=== PATIENT | female | born 1955 | race Caucasian/White ===

== ENCOUNTER → 2016-06-26 | Outpatient (CLI) | payer BC ==
[~2016-06-26] MED LIST: ACETAMINOPHEN-O1 TAB PO; ASPIRIN ADULT L81 M3 PO; BUDESONIDE0.5 MG/2 M IH; CALCIUM 600 PLU1 TAB PO; CELLCEPT 5500 MG/TAB PO; FEXOFENADINE H180 M1 PO; FLAXSEED OIL1 CAP PO; FOSAMAX 70MG TA70 MG PO; GREEN TEA1 EACH PO; HYDROCODON-ACET15 ML PO; MASON NATURAL1000 IU PO; NATURAL E400 IU PO; NATURAL IRON65 MG PO; NATURAL VITAM1000 MG PO; OMEPRAZOLE40 MG PO; PLAQUENIL 200M200 MG PO; PREDNISONE10 MG; PREDNISONE20 M1 PO; PROAIR HFA0.09 MG/AC; SPIRONOLACTONE/1 TAB PO; SYNTHROID0.2 MG/TAB PO; ZOFRAN4 M2 PO
[2016-06-26 10:36] VITALS: BP 133/74
== END ==
LOC: AMSURD 10:04
DX: R06.00 Dyspnea, unspecified (principal)

== ENCOUNTER → 2016-07-06 | Outpatient (CLI) | payer BC | LOC: RAD 14:41 | DX: K11.23 Chronic sialoadenitis (principal) | CPT/HCPCS: Q9967 ==

== ENCOUNTER 2016-08-21 09:30 | Emergency (ER) | payer BC ==
[~2016-08-21 09:30] MED LIST changes: -ACETAMINOPHEN-O1 TAB PO; -HYDROCODON-ACET15 ML PO; -PREDNISONE20 M1 PO; -ZOFRAN4 M2 PO
[2016-08-21] MEDS ORDERED: HYDROCODON-ACET15 ML PO (11:42)
[2016-08-21] MEDS ORDERED: PREDNISONE20 M1 PO (11:43)
[2016-08-22] MEDS ORDERED: ZOFRAN4 M2 PO (21:27)
== END 2016-08-21 12:39 | disposition home or self-care (01) ==
LOC: ED 09:30
DX: K11.8 Other diseases of salivary glands (principal)
CPT/HCPCS: J2270; J2930

== ENCOUNTER 2016-08-22 20:07 | Inpatient (IN) | payer BC ==
[~2016-08-22 20:07] MED LIST changes: +HYDROCODON-ACET15 ML PO; +PREDNISONE20 M1 PO
[2016-08-22] MEDS ORDERED: ZOFRAN4 M2 PO (21:27)
[2016-08-23] VITALS (8 sets, daily range): BP systolic 135–163; BP diastolic 43–85
[2016-08-23] MEDS ORDERED: ACETAMINOPHEN-O1 TAB PO (17:24)
[2016-08-23] MEDS ORDERED: PREDNISONE20 M1 PO (17:26)
[2016-08-24 02:28] VITALS: BP 140/68
[2016-08-24 06:21] VITALS: BP 151/77
== END 2016-08-24 09:01 | disposition home or self-care (01) | DRG 547 ==
LOC: ED 20:07 → MED/SURG 23:20
PROVIDERS: ADMIT Nurse Practitioner Family
DX: M32.19 Other organ or system involvement in systemic lupus erythematosus (principal); K11.20 Sialoadenitis, unspecified; K13.79 Other lesions of oral mucosa; K21.9 Gastro-esophageal reflux disease without esophagitis; E03.9 Hypothyroidism, unspecified; I10 Essential (primary) hypertension; Z79.52 Long term (current) use of systemic steroids; Z79.82 Long term (current) use of aspirin
CPT/HCPCS: J2270; J2405; J2930

== ENCOUNTER 2016-08-27 10:19 | Emergency (ER) | payer BC ==
[~2016-08-27 10:19] MED LIST changes: +ACETAMINOPHEN-O1 TAB PO; +ZOFRAN4 M2 PO
== END 2016-08-27 12:00 | disposition home or self-care (01) ==
LOC: ED 10:19
DX: K11.23 Chronic sialoadenitis (principal); R68.84 Jaw pain

== ENCOUNTER → 2016-09-05 | Outpatient (CLI) | payer BC ==
[2016-08-27 12:00] VITALS: BP 168/87
== END ==
LOC: LAB 13:39
DX: L02.11 Cutaneous abscess of neck (principal); M27.2 Inflammatory conditions of jaws

== ENCOUNTER → 2016-09-06 | Outpatient (CLI) | payer BC ==
[2016-08-27 12:00] VITALS: BP 168/87
== END ==
LOC: MAMMO 09:59
DX: L02.11 Cutaneous abscess of neck (principal); M27.2 Inflammatory conditions of jaws
CPT/HCPCS: G0202; Q9967

== ENCOUNTER → 2017-09-11 | Outpatient (CLI) | payer BC ==
[2016-08-27 12:00] VITALS: BP 168/87
== END ==
LOC: MAMMO 09:54 → RAD 10:00
DX: Z12.31 Encounter for screening mammogram for malignant neoplasm of breast (principal)

== ENCOUNTER → 2017-11-02 | Outpatient (CLI) | payer BC ==
[2016-08-27 12:00] VITALS: BP 168/87
[2017-11-02 16:02] LABS: HEMATOCRIT 39.6 % (37.0-47.0); HEMOGLOBIN 12.4 g/dL (12.5-16.0); MEAN CELL VOLUME 87 fl (78-100); MEAN CORPUSCULAR HEMOGLOBIN 27 pg (27-31); MEAN CORPUSCULAR HGB CONC 31 g/dL (33-37); MEAN PLATELET VOLUME 9.3 fl (7.4-10.4); PLATELET COUNT 255 K/mm3 (130-400); RED BLOOD COUNT 4.58 M/mm3 (4.10-5.30); RED CELL DISTRIBUTION WIDTH 13.9 % (11.5-14.5); WHITE BLOOD COUNT 7.4 K/mm3 (4.8-10.8)
[2017-11-02 16:36] LABS: LYMPHOCYTE 9 % (20-51); MONOCYTE 3 % (3-10); NEUTROPHILS 87 % (42-75)
[2017-11-02 17:02] LABS: ALBUMIN 4.1 g/dL (3.5-5.0); BUN/CREATININE RATIO 23.2 (6.0-26.0); CALCIUM 8.8 mg/dL (8.4-10.2); POTASSIUM 4.8 mmol/L (3.6-5.0); TOTAL BILIRUBIN 0.3 mg/dL (0.2-1.3); TOTAL PROTEIN 7.6 g/dL (6.3-8.2)
== END ==
LOC: LAB 15:43
PROVIDERS: Internal Medicine
DX: L03.818 Cellulitis of other sites (principal); L02.11 Cutaneous abscess of neck; M27.2 Inflammatory conditions of jaws

== ENCOUNTER 2017-11-14 15:29 | Outpatient (RCR) | payer BC ==
[~2017-11-14] VITALS: Ht 172.7 cm; Wt 88.0 kg
[2017-11-14 16:03] VITALS: BP 123/61
[2017-11-14 16:40] VITALS: BP 114/64
[2017-11-15 15:25] VITALS: BP 117/57
[2017-11-15] MEDS ORDERED: VITAMIN C500 MG PO (15:42)
[2017-11-15] MEDS ORDERED: PRILOSEC OTC20 MG PO (15:43)
[2017-11-15] MEDS ORDERED: ALLEGRA ALLERG180 MG PO (15:44)
[2017-11-15] MEDS ORDERED: FIBER LAX625 MG PO (15:44)
[2017-11-15] MEDS ORDERED: CELLCEPT 5500 MG/TAB PO (15:45)
[2017-11-15] MEDS ORDERED: PREDNISONE 5MG5 MG PO (15:46)
[2017-11-15 16:05] VITALS: BP 113/70
[2017-11-16 16:29] VITALS: BP 124/58
[2017-11-16 17:04] VITALS: BP 144/63
[2017-11-17 15:17] VITALS: BP 105/62
[2017-11-17 15:49] VITALS: BP 109/55
[2017-11-18 15:34] VITALS: BP 96/56
[2017-11-18 16:13] VITALS: BP 121/54
[2017-11-19 15:33] VITALS: BP 108/57
[2017-11-19 16:02] VITALS: BP 109/60
[2017-11-20 16:02] VITALS: BP 116/70
[2017-11-20 16:16] VITALS: BP 107/56
[2017-11-21 15:25] VITALS: BP 122/59
[2017-11-21 16:11] VITALS: BP 102/69
[2017-11-22 15:49] VITALS: BP 137/51
[2017-11-22 17:12] VITALS: BP 120/66
[2017-11-23 15:19] VITALS: BP 109/59
[2017-11-23 15:59] VITALS: BP 129/63
== END 2017-11-23 17:00 | disposition home or self-care (01) ==
LOC: AMSURD 15:29
DX: L03.211 Cellulitis of face (principal)
CPT/HCPCS: J0696

== ENCOUNTER → 2017-12-27 | Outpatient (CLI) | payer BC ==
[~2017-12-27] MED LIST changes: +ALLEGRA ALLERG180 MG PO; +FIBER LAX625 MG PO; +PREDNISONE 5MG5 MG PO; +PRILOSEC OTC20 MG PO; +VITAMIN C500 MG PO
[2017-12-27 17:39] LABS: HEMATOCRIT 40.6 % (37.0-47.0); HEMOGLOBIN 12.9 g/dL (12.5-16.0); MEAN CELL VOLUME 85 fl (78-100); MEAN CORPUSCULAR HEMOGLOBIN 27 pg (27-31); MEAN CORPUSCULAR HGB CONC 32 g/dL (33-37); MEAN PLATELET VOLUME 9.4 fl (7.4-10.4); PLATELET COUNT 255 K/mm3 (130-400); RED BLOOD COUNT 4.78 M/mm3 (4.10-5.30); RED CELL DISTRIBUTION WIDTH 14.4 % (11.5-14.5)
[2017-12-27 17:45] LABS: ALBUMIN 3.8 g/dL (3.5-5.0); BUN/CREATININE RATIO 22.6 (6.0-26.0); CALCIUM 8.8 mg/dL (8.4-10.2); POTASSIUM 4.5 mmol/L (3.6-5.0); TOTAL BILIRUBIN 0.2 mg/dL (0.2-1.3); TOTAL PROTEIN 7.4 g/dL (6.3-8.2)
[2017-12-27 18:43] LABS: BAND 2 % (0-10); LYMPHOCYTE 15 % (20-51); MONOCYTE 4 % (3-10); NEUTROPHILS 76 % (42-75)
[2017-12-27 19:19] LABS: ERYTHROCYTE SEDIMENTATION RATE 33 mm/hr (0-30)
== END ==
LOC: LAB 17:19
PROVIDERS: Internal Medicine
DX: L02.11 Cutaneous abscess of neck (principal); M27.2 Inflammatory conditions of jaws

== ENCOUNTER → 2017-12-28 | Outpatient (CLI) | payer BC | LOC: RAD 12:56 | DX: M27.2 Inflammatory conditions of jaws (principal); L02.11 Cutaneous abscess of neck; Z98.890 Other specified postprocedural states; Z87.19 Personal history of other diseases of the digestive system; Z90.49 Acquired absence of other specified parts of digestive tract; Z96.7 Presence of other bone and tendon implants | CPT/HCPCS: Q9967 ==

== ENCOUNTER → 2017-12-31 | Outpatient (CLI) | payer BC | LOC: RAD 08:50 | DX: J98.11 Atelectasis (principal); J84.10 Pulmonary fibrosis, unspecified ==

== ENCOUNTER → 2018-02-18 | Outpatient (CLI) | payer BC ==
[2018-02-18 16:12] LABS: HEMATOCRIT 37.7 % (37.0-47.0); HEMOGLOBIN 12.1 g/dL (12.5-16.0); MEAN CELL VOLUME 84 fl (78-100); MEAN CORPUSCULAR HEMOGLOBIN 27 pg (27-31); MEAN CORPUSCULAR HGB CONC 32 g/dL (33-37); PLATELET COUNT 266 K/mm3 (130-400); RED BLOOD COUNT 4.48 M/mm3 (4.10-5.30); RED CELL DISTRIBUTION WIDTH 14.8 % (11.5-14.5)
[2018-02-18 16:45] LABS: ALBUMIN 3.6 g/dL (3.5-5.0); CALCIUM 8.8 mg/dL (8.4-10.2); LYMPHOCYTE 6 % (20-51); MONOCYTE 7 % (3-10); NEUTROPHILS 87 % (42-75); POTASSIUM 4.6 mmol/L (3.6-5.0); TOTAL BILIRUBIN 0.4 mg/dL (0.2-1.3); TOTAL PROTEIN 6.9 g/dL (6.3-8.2)
[2018-02-18 18:47] LABS: ERYTHROCYTE SEDIMENTATION RATE 42 mm/hr (0-30)
== END ==
LOC: LAB 15:40
PROVIDERS: Internal Medicine
DX: L02.11 Cutaneous abscess of neck (principal); M27.2 Inflammatory conditions of jaws

== ENCOUNTER → 2018-02-20 | Outpatient (CLI) | payer BC ==
[2018-02-20 08:11] LABS: ALBUMIN 3.4 g/dL (3.5-5.0); CALCIUM 8.7 mg/dL (8.4-10.2); TOTAL BILIRUBIN 0.6 mg/dL (0.2-1.3); TOTAL PROTEIN 6.5 g/dL (6.3-8.2)
[2018-02-20 08:17] LABS: URINE APPEARANCE CLEAR; URINE BILIRUBIN NEGATIVE (NEGATIVE); URINE BLOOD NEGATIVE (NEGATIVE); URINE COLOR YELLOW; URINE GLUCOSE NEGATIVE (NEGATIVE); URINE KETONE NEGATIVE (NEGATIVE); URINE LEUKOCYTE ESTERASE NEGATIVE (NEGATIVE); URINE NITRATE NEGATIVE (NEGATIVE); URINE PROTEIN(semi-quant) NEGATIVE (NEGATIVE); URINE UROBILINOGEN NORMAL (NORMAL); URINE WBC 0-1 /hpf (0-3)
== END ==
LOC: LAB 07:36
PROVIDERS: Physician Assistant
DX: Z79.899 Other long term (current) drug therapy (principal)

== ENCOUNTER → 2018-06-18 | Outpatient (CLI) | payer MEDICARE, BC ==
[2018-06-18 12:46] LABS: HEMATOCRIT 41.2 % (37.0-47.0); HEMOGLOBIN 12.8 g/dL (12.5-16.0); MEAN CELL VOLUME 86 fl (78-100); MEAN CORPUSCULAR HEMOGLOBIN 27 pg (27-31); MEAN CORPUSCULAR HGB CONC 31 g/dL (33-37); MEAN PLATELET VOLUME 9.6 fl (7.4-10.4); PLATELET COUNT 221 K/mm3 (130-400); RED BLOOD COUNT 4.81 M/mm3 (4.10-5.30); RED CELL DISTRIBUTION WIDTH 15.6 % (11.5-14.5); WHITE BLOOD COUNT 12.9 K/mm3 (4.8-10.8)
[2018-06-18 12:51] LABS: ALBUMIN 3.8 g/dL (3.5-5.0); CALCIUM 9.4 mg/dL (8.4-10.2); POTASSIUM 4.2 mmol/L (3.6-5.0); TOTAL BILIRUBIN 0.5 mg/dL (0.2-1.3)
[2018-06-18 13:13] LABS: BAND 5 % (0-10); LYMPHOCYTE 8 % (20-51); MONOCYTE 4 % (3-10); NEUTROPHILS 83 % (42-75)
[2018-06-18 14:09] LABS: ERYTHROCYTE SEDIMENTATION RATE 11 mm/hr (0-30)
== END ==
LOC: LAB 12:15
PROVIDERS: Nurse Practitioner Family
DX: L03.211 Cellulitis of face (principal); B99.9 Unspecified infectious disease; M35.9 Systemic involvement of connective tissue, unspecified

== ENCOUNTER → 2018-06-24 | Outpatient (CLI) | payer MEDICARE, BC ==
[2018-06-24 10:48] LABS: EOS # 0.1 (0.04-0.40); EOS % 1.6 % (1.0-5.0); HEMATOCRIT 41.6 % (37.0-47.0); HEMOGLOBIN 12.8 g/dL (12.5-16.0); MEAN CELL VOLUME 86 fl (78-100); MEAN CORPUSCULAR HEMOGLOBIN 26 pg (27-31); MEAN CORPUSCULAR HGB CONC 31 g/dL (33-37); MEAN PLATELET VOLUME 9.7 fl (7.4-10.4); MONO # 0.5 (0.20-0.80); PLATELET COUNT 216 K/mm3 (130-400); RED BLOOD COUNT 4.85 M/mm3 (4.10-5.30); RED CELL DISTRIBUTION WIDTH 15.7 % (11.5-14.5); WHITE BLOOD COUNT 6.7 K/mm3 (4.8-10.8)
[2018-06-24 11:15] LABS: ALBUMIN 3.5 g/dL (3.5-5.0); POTASSIUM 3.7 mmol/L (3.6-5.0); TOTAL BILIRUBIN 0.4 mg/dL (0.2-1.3)
[2018-06-24 11:27] LABS: TOTAL PROTEIN 6.5 g/dL (6.3-8.2)
[2018-06-24 11:59] LABS: ERYTHROCYTE SEDIMENTATION RATE 9 mm/hr (0-30)
== END ==
LOC: LAB 10:12
PROVIDERS: Internal Medicine
DX: L03.211 Cellulitis of face (principal); B99.9 Unspecified infectious disease; M35.9 Systemic involvement of connective tissue, unspecified

== ENCOUNTER → 2018-09-11 | Outpatient (CLI) | payer MEDICARE, BC | LOC: MAMMO 14:25 | DX: Z12.31 Encounter for screening mammogram for malignant neoplasm of breast (principal) ==

== ENCOUNTER → 2019-08-06 | Outpatient (CLI) | payer MEDICARE, BC ==
[~2019-08-06] MED LIST changes: +B-1100 M1 PO; +BETAMETHASONE D0.05% TOP; +FISH OIL + D31 EACH PO; +GLUCOSAMINE DA1 EACH PO; +GLUTATHIONE1 POW; +ISONIAZID300 M1 PO; +LOTRIMIN AF1% TP; +METRONIDAZOLE0.75% TP; +MONODOX100 M1 PO; +PSYLLIUM FIBE0.52 GM PO; +TEMOVATE15 GM TP
[2019-08-06 09:12] LABS: HEMATOCRIT 36.7 % (37.0-47.0); HEMOGLOBIN 10.9 g/dL (12.5-16.0); MEAN CELL VOLUME 84 fl (78-100); MEAN CORPUSCULAR HEMOGLOBIN 25 pg (27-31); MEAN CORPUSCULAR HGB CONC 30 g/dL (33-37); PLATELET COUNT 225 K/mm3 (130-400); RED BLOOD COUNT 4.36 M/mm3 (4.10-5.30); RED CELL DISTRIBUTION WIDTH 15.5 % (11.5-14.5); WHITE BLOOD COUNT 5.6 K/mm3 (4.8-10.8)
[2019-08-06 09:23] LABS: ALBUMIN 3.3 g/dL (3.4-4.8); POTASSIUM 3.2 mmol/L (3.5-5.1)
[2019-08-06 09:25] LABS: TOTAL PROTEIN 5.9 g/dL (6.2-8.1)
[2019-08-06 09:27] LABS: TOTAL BILIRUBIN 0.3 mg/dL (0.2-1.2)
[2019-08-06 09:32] LABS: BAND 1 % (0-10); LYMPHOCYTE 14 % (20-51); MAGNESIUM 1.84 mg/dL (1.60-2.60); MICROCYTOSIS 1+; MONOCYTE 3 % (3-10); NEUTROPHILS 80 % (42-75)
[2019-08-06 09:33] LABS: HYPOCHROMIA 1+
== END ==
LOC: LAB 08:37
PROVIDERS: Internal Medicine
DX: Z12.11 Encounter for screening for malignant neoplasm of colon (principal); J84.112 Idiopathic pulmonary fibrosis; K90.9 Intestinal malabsorption, unspecified; E78.2 Mixed hyperlipidemia; L93.1 Subacute cutaneous lupus erythematosus; E03.9 Hypothyroidism, unspecified

== ENCOUNTER 2019-08-14 14:45 | Outpatient (RCR) | payer MEDICARE, BC ==
[2019-08-11 14:30] VITALS: BP 141/59
[2019-08-11 16:34] VITALS: BP 148/59
[~2019-08-14] VITALS: Ht 172.7 cm; Wt 82.7 kg
[2019-08-14 15:21] VITALS: BP 159/62
[2019-08-14 16:50] VITALS: BP 141/59
== END 2019-11-09 | disposition still patient (30) ==
LOC: AMSURD
DX: D64.9 Anemia, unspecified (principal); Z79.899 Other long term (current) drug therapy
CPT/HCPCS: J1756; J7050

== ENCOUNTER → 2019-12-01 | Outpatient (CLI) | payer MEDICARE, BC ==
[2019-12-01 08:14] LABS: HEMATOCRIT 37.5 % (37.0-47.0); HEMOGLOBIN 11.7 g/dL (12.5-16.0); MEAN CELL VOLUME 93 fl (78-100); MEAN CORPUSCULAR HEMOGLOBIN 29 pg (27-31); MEAN CORPUSCULAR HGB CONC 31 g/dL (33-37); MEAN PLATELET VOLUME 9.3 fl (7.4-10.4); PLATELET COUNT 221 K/mm3 (130-400); RED BLOOD COUNT 4.04 M/mm3 (4.10-5.30); RED CELL DISTRIBUTION WIDTH 16.8 % (11.5-14.5); WHITE BLOOD COUNT 5.1 K/mm3 (4.8-10.8)
[2019-12-01 08:57] LABS: POTASSIUM 3.9 mmol/L (3.5-5.1)
[2019-12-01 08:58] LABS: CALCIUM 8.8 mg/dL (8.3-10.5)
[2019-12-01 09:00] LABS: TOTAL PROTEIN 6.3 g/dL (6.2-8.1)
[2019-12-01 09:01] LABS: TOTAL BILIRUBIN 0.3 mg/dL (0.2-1.2)
[2019-12-01 09:06] LABS: MAGNESIUM 1.76 mg/dL (1.60-2.60)
[2019-12-01 11:48] LABS: ALBUMIN 3.6 g/dL (3.4-4.8)
[2019-12-01 11:53] LABS: HYPOCHROMIA 1+; LYMPHOCYTE 21 % (20-51); MONOCYTE 9 % (3-10); NEUTROPHILS 69 % (42-75)
== END ==
LOC: LAB 06:59
DX: Z48.298 Encounter for aftercare following other organ transplant (principal); Z94.2 Lung transplant status; Z79.899 Other long term (current) drug therapy

== ENCOUNTER → 2019-12-08 | Outpatient (CLI) | payer MEDICARE, BC ==
[2019-12-08 07:30] LABS: EOS % 0.4 % (1.0-5.0); HEMATOCRIT 37.9 % (37.0-47.0); HEMOGLOBIN 11.8 g/dL (12.5-16.0); MEAN CELL VOLUME 92 fl (78-100); MEAN CORPUSCULAR HEMOGLOBIN 29 pg (27-31); MEAN CORPUSCULAR HGB CONC 31 g/dL (33-37); MEAN PLATELET VOLUME 9.6 fl (7.4-10.4); MONO # 0.5 (0.20-0.80); NEU # 2.9 (1.40-6.50); PLATELET COUNT 198 K/mm3 (130-400); RED CELL DISTRIBUTION WIDTH 16.5 % (11.5-14.5); WHITE BLOOD COUNT 4.6 K/mm3 (4.8-10.8)
[2019-12-08 09:24] LABS: ALBUMIN 3.7 g/dL (3.4-4.8); POTASSIUM 4.4 mmol/L (3.5-5.1)
[2019-12-08 09:27] LABS: TOTAL PROTEIN 6.4 g/dL (6.2-8.1)
[2019-12-08 09:29] LABS: TOTAL BILIRUBIN 0.3 mg/dL (0.2-1.2)
[2019-12-08 09:33] LABS: MAGNESIUM 1.76 mg/dL (1.60-2.60)
== END ==
LOC: LAB 07:02
PROVIDERS: Internal Medicine
DX: Z48.298 Encounter for aftercare following other organ transplant (principal); Z94.2 Lung transplant status; Z79.899 Other long term (current) drug therapy

== ENCOUNTER → 2019-12-15 | Outpatient (CLI) | payer MEDICARE, BC ==
[2019-12-15 07:29] LABS: ALBUMIN 3.8 g/dL (3.4-4.8); EOS % 0.7 % (1.0-5.0); HEMATOCRIT 38.5 % (37.0-47.0); HEMOGLOBIN 11.9 g/dL (12.5-16.0); LYMPH# 0.9 (1.50-4.00); MEAN CELL VOLUME 93 fl (78-100); MEAN CORPUSCULAR HEMOGLOBIN 29 pg (27-31); MEAN CORPUSCULAR HGB CONC 31 g/dL (33-37); MEAN PLATELET VOLUME 9.3 fl (7.4-10.4); MONO # 0.5 (0.20-0.80); NEU # 2.8 (1.40-6.50); PLATELET COUNT 188 K/mm3 (130-400); POTASSIUM 4.9 mmol/L (3.5-5.1); RED BLOOD COUNT 4.15 M/mm3 (4.10-5.30); WHITE BLOOD COUNT 4.4 K/mm3 (4.8-10.8)
[2019-12-15 07:31] LABS: CALCIUM 8.9 mg/dL (8.3-10.5)
[2019-12-15 07:32] LABS: TOTAL PROTEIN 6.6 g/dL (6.2-8.1)
[2019-12-15 07:34] LABS: TOTAL BILIRUBIN 0.3 mg/dL (0.2-1.2)
[2019-12-15 07:38] LABS: MAGNESIUM 2.02 mg/dL (1.60-2.60)
== END ==
LOC: LAB 07:06
DX: Z48.298 Encounter for aftercare following other organ transplant (principal); Z94.2 Lung transplant status; Z79.899 Other long term (current) drug therapy

== ENCOUNTER → 2019-12-29 | Outpatient (CLI) | payer MEDICARE, BC ==
[2019-12-29 07:35] LABS: EOS # 0.1 (0.04-0.40); EOS % 1.8 % (1.0-5.0); HEMATOCRIT 37.9 % (37.0-47.0); HEMOGLOBIN 11.7 g/dL (12.5-16.0); LYMPH# 0.9 (1.50-4.00); MEAN CELL VOLUME 93 fl (78-100); MEAN CORPUSCULAR HEMOGLOBIN 29 pg (27-31); MEAN CORPUSCULAR HGB CONC 31 g/dL (33-37); MEAN PLATELET VOLUME 9.5 fl (7.4-10.4); MONO # 0.4 (0.20-0.80); NEU # 2.5 (1.40-6.50); PLATELET COUNT 177 K/mm3 (130-400); RED BLOOD COUNT 4.07 M/mm3 (4.10-5.30); RED CELL DISTRIBUTION WIDTH 15.5 % (11.5-14.5)
[2019-12-29 07:43] LABS: ALBUMIN 3.7 g/dL (3.4-4.8); POTASSIUM 4.4 mmol/L (3.5-5.1)
[2019-12-29 07:44] LABS: CALCIUM 8.8 mg/dL (8.3-10.5)
[2019-12-29 07:46] LABS: TOTAL PROTEIN 6.4 g/dL (6.2-8.1)
[2019-12-29 07:47] LABS: TOTAL BILIRUBIN 0.3 mg/dL (0.2-1.2)
[2019-12-29 07:53] LABS: MAGNESIUM 1.81 mg/dL (1.60-2.60)
== END ==
LOC: LAB 07:10
DX: Z48.298 Encounter for aftercare following other organ transplant (principal); Z79.899 Other long term (current) drug therapy; Z94.2 Lung transplant status

== ENCOUNTER → 2019-12-31 | Outpatient (CLI) | payer MEDICARE, BC | LOC: MAMMO 08:22 | DX: Z12.31 Encounter for screening mammogram for malignant neoplasm of breast (principal) ==

== ENCOUNTER → 2020-01-02 | Outpatient (CLI) | payer MEDICARE, BC | LOC: LAB 10:06 | DX: Z01.818 Encounter for other preprocedural examination (principal); R06.02 Shortness of breath; Z20.828 Contact with and (suspected) exposure to other viral communicable diseases ==

== ENCOUNTER 2020-01-12 15:27 | Emergency (ER) | payer MEDICARE, BC ==
[~2020-01-12] VITALS: Wt 87.0 kg
[~2020-01-12 15:27] MED LIST changes: +SYNTHROID0.15 MG PO; -SYNTHROID0.2 MG/TAB PO
[2020-01-12] MEDS ORDERED: SINGULAIR PO (16:14)
[2020-01-12] MEDS ORDERED: LYRICA75 MG PO (16:18)
[2020-01-12] MEDS ORDERED: PROGRAF1 M1 PO (16:18)
[2020-01-12] MEDS ORDERED: MAGNESIUM400 M1 PO (16:19)
[2020-01-12] MEDS ORDERED: CARDIZEM CD180 M1 PO (16:19)
[2020-01-12] MEDS ORDERED: BACTRIM DS TAB1 EACH PO (16:20)
[2020-01-12] MEDS ORDERED: KAPSPARGO SPRIN50 MG PO (16:20)
[2020-01-12] MEDS ORDERED: VALGANCICLOVIR450 MG PO (16:21)
[2020-01-12] MEDS ORDERED: BACLOFEN5 MG PO (16:21)
[2020-01-12] MEDS ORDERED: POSACONAZOLE100 MG PO (16:21)
[2020-01-12 17:17] LABS: HEMATOCRIT 36.5 % (37.0-47.0); HEMOGLOBIN 11.3 g/dL (12.5-16.0); MEAN CELL VOLUME 90 fl (78-100); MEAN CORPUSCULAR HEMOGLOBIN 28 pg (27-31); MEAN CORPUSCULAR HGB CONC 31 g/dL (33-37); MEAN PLATELET VOLUME 9.1 fl (7.4-10.4); PLATELET COUNT 289 K/mm3 (130-400); RED BLOOD COUNT 4.04 M/mm3 (4.10-5.30); RED CELL DISTRIBUTION WIDTH 14.4 % (11.5-14.5); WHITE BLOOD COUNT 4.2 K/mm3 (4.8-10.8)
[2020-01-12 17:31] LABS: ALBUMIN 3.8 g/dL (3.4-4.8)
[2020-01-12 17:32] LABS: POTASSIUM 4.7 mmol/L (3.5-5.1)
[2020-01-12 17:33] LABS: CALCIUM 9.1 mg/dL (8.3-10.5)
[2020-01-12 17:34] LABS: TOTAL PROTEIN 6.7 g/dL (6.2-8.1)
[2020-01-12] MEDS ORDERED: K-PHOS ORIGINA500 MG PO (17:34)
[2020-01-12 17:36] LABS: TOTAL BILIRUBIN 0.3 mg/dL (0.2-1.2)
[2020-01-12] MEDS ORDERED: PRAVASTATIN SOD20 MG PO (17:36)
[2020-01-12 17:54] LABS: LYMPHOCYTE 13 % (20-51); MONOCYTE 11 % (3-10); NEUTROPHILS 74 % (42-75)
[2020-01-12 17:55] LABS: POLYCHROMASIA 1+
[2020-01-12 18:24] LABS: ERYTHROCYTE SEDIMENTATION RATE 72 mm/hr (0-30)
[2020-01-12 19:12] VITALS: BP 127/69
== END 2020-01-12 19:55 | disposition home or self-care (01) ==
LOC: ED 15:27
PROVIDERS: Nurse Practitioner Primary Care
DX: R06.02 Shortness of breath (principal); Z94.2 Lung transplant status; I48.91 Unspecified atrial fibrillation; I10 Essential (primary) hypertension; E03.9 Hypothyroidism, unspecified; Z79.52 Long term (current) use of systemic steroids; Z79.82 Long term (current) use of aspirin; Z79.890 Hormone replacement therapy; Z88.8 Allergy status to other drugs, medicaments and biological substances; Z90.710 Acquired absence of both cervix and uterus
CPT/HCPCS: Q9967

== ENCOUNTER → 2020-02-03 | Outpatient (CLI) | payer MEDICARE, BC ==
[2020-01-12 19:12] VITALS: BP 127/69
[~2020-02-03] MED LIST changes: +BACLOFEN5 MG PO; +BACTRIM DS TAB1 EACH PO; +CARDIZEM CD180 M1 PO; +K-PHOS ORIGINA500 MG PO; +KAPSPARGO SPRIN50 MG PO; +LYRICA75 MG PO; +MAGNESIUM400 M1 PO; +POSACONAZOLE100 MG PO; +PRAVASTATIN SOD20 MG PO; +PROGRAF1 M1 PO; +SINGULAIR PO; +VALGANCICLOVIR450 MG PO
[2020-02-03 07:21] LABS: EOS # 0.1 (0.04-0.40); EOS % 1.3 % (1.0-5.0); HEMATOCRIT 37.6 % (37.0-47.0); HEMOGLOBIN 11.4 g/dL (12.5-16.0); LYMPH# 0.9 (1.50-4.00); MEAN CELL VOLUME 92 fl (78-100); MEAN CORPUSCULAR HEMOGLOBIN 28 pg (27-31); MEAN CORPUSCULAR HGB CONC 30 g/dL (33-37); MEAN PLATELET VOLUME 9.8 fl (7.4-10.4); MONO # 0.4 (0.20-0.80); NEU # 2.4 (1.40-6.50); PLATELET COUNT 159 K/mm3 (130-400); RED BLOOD COUNT 4.09 M/mm3 (4.10-5.30)
[2020-02-03 07:58] LABS: ALBUMIN 3.7 g/dL (3.4-4.8)
[2020-02-03 07:59] LABS: CALCIUM 8.9 mg/dL (8.3-10.5)
[2020-02-03 08:01] LABS: TOTAL PROTEIN 6.2 g/dL (6.2-8.1)
[2020-02-03 08:02] LABS: TOTAL BILIRUBIN 0.2 mg/dL (0.2-1.2)
[2020-02-03 08:07] LABS: MAGNESIUM 2.19 mg/dL (1.60-2.60)
== END ==
LOC: LAB 07:03
DX: Z48.298 Encounter for aftercare following other organ transplant (principal); Z79.899 Other long term (current) drug therapy; Z94.2 Lung transplant status

== ENCOUNTER → 2020-02-16 | Outpatient (CLI) | payer MEDICARE, BC ==
[2020-02-16 07:13] LABS: HEMATOCRIT 37.1 % (37.0-47.0); HEMOGLOBIN 11.5 g/dL (12.5-16.0); MEAN CELL VOLUME 91 fl (78-100); MEAN CORPUSCULAR HEMOGLOBIN 28 pg (27-31); MEAN CORPUSCULAR HGB CONC 31 g/dL (33-37); MEAN PLATELET VOLUME 8.7 fl (7.4-10.4); PLATELET COUNT 215 K/mm3 (130-400); RED BLOOD COUNT 4.07 M/mm3 (4.10-5.30); RED CELL DISTRIBUTION WIDTH 15.2 % (11.5-14.5); WHITE BLOOD COUNT 2.4 K/mm3 (4.8-10.8)
[2020-02-16 07:26] LABS: ALBUMIN 3.8 g/dL (3.4-4.8); POTASSIUM 5.2 mmol/L (3.5-5.1)
[2020-02-16 07:27] LABS: CALCIUM 9.1 mg/dL (8.3-10.5)
[2020-02-16 07:28] LABS: TOTAL PROTEIN 6.3 g/dL (6.2-8.1)
[2020-02-16 07:30] LABS: TOTAL BILIRUBIN 0.2 mg/dL (0.2-1.2)
[2020-02-16 07:34] LABS: MAGNESIUM 2.08 mg/dL (1.60-2.60)
[2020-02-16 07:58] LABS: BAND 2 % (0-10); LYMPHOCYTE 22 % (20-51); MONOCYTE 9 % (3-10); NEUTROPHILS 64 % (42-75); POLYCHROMASIA 1+
== END ==
LOC: LAB 06:58
DX: Z48.298 Encounter for aftercare following other organ transplant (principal); Z79.899 Other long term (current) drug therapy; Z94.2 Lung transplant status

== ENCOUNTER → 2020-02-20 | Outpatient (CLI) | payer MEDICARE, BC ==
[2020-02-20 07:51] LABS: EOS # 0.1 (0.04-0.40); EOS % 2.2 % (1.0-5.0); HEMATOCRIT 39.7 % (37.0-47.0); HEMOGLOBIN 12.4 g/dL (12.5-16.0); MEAN CELL VOLUME 90 fl (78-100); MEAN CORPUSCULAR HEMOGLOBIN 28 pg (27-31); MEAN CORPUSCULAR HGB CONC 31 g/dL (33-37); MEAN PLATELET VOLUME 9.4 fl (7.4-10.4); MONO # 0.4 (0.20-0.80); PLATELET COUNT 289 K/mm3 (130-400); RED CELL DISTRIBUTION WIDTH 15.4 % (11.5-14.5); WHITE BLOOD COUNT 3.6 K/mm3 (4.8-10.8)
== END ==
LOC: LAB 07:05
DX: Z48.298 Encounter for aftercare following other organ transplant (principal); Z94.2 Lung transplant status; Z79.899 Other long term (current) drug therapy

== ENCOUNTER → 2020-02-24 | Outpatient (CLI) | payer MEDICARE, BC ==
[2020-02-24 07:20] LABS: HEMATOCRIT 38.2 % (37.0-47.0); HEMOGLOBIN 11.8 g/dL (12.5-16.0); MEAN CELL VOLUME 91 fl (78-100); MEAN CORPUSCULAR HEMOGLOBIN 28 pg (27-31); MEAN CORPUSCULAR HGB CONC 31 g/dL (33-37); MEAN PLATELET VOLUME 9.1 fl (7.4-10.4); PLATELET COUNT 212 K/mm3 (130-400); RED CELL DISTRIBUTION WIDTH 15.3 % (11.5-14.5); WHITE BLOOD COUNT 2.8 K/mm3 (4.8-10.8)
[2020-02-24 07:30] LABS: ALBUMIN 3.8 g/dL (3.4-4.8)
[2020-02-24 07:31] LABS: POTASSIUM 5.2 mmol/L (3.5-5.1)
[2020-02-24 07:32] LABS: CALCIUM 9.2 mg/dL (8.3-10.5)
[2020-02-24 07:33] LABS: TOTAL PROTEIN 6.2 g/dL (6.2-8.1)
[2020-02-24 07:35] LABS: LYMPHOCYTE 34 % (20-51); MONOCYTE 6 % (3-10); NEUTROPHILS 57 % (42-75); TOTAL BILIRUBIN 0.3 mg/dL (0.2-1.2)
[2020-02-24 07:40] LABS: MAGNESIUM 2.24 mg/dL (1.60-2.60)
== END ==
LOC: LAB 06:59
DX: Z48.298 Encounter for aftercare following other organ transplant (principal); Z94.2 Lung transplant status; Z79.899 Other long term (current) drug therapy

== ENCOUNTER 2020-02-25 08:30 | Outpatient (RCR) | payer MEDICARE, BC | END 2020-02-25 09:00 | disposition still patient (30) | LOC: PT 08:30 | DX: Z48.24 Encounter for aftercare following lung transplant (principal); Z94.2 Lung transplant status; R53.1 Weakness ==

== ENCOUNTER → 2020-03-02 | Outpatient (CLI) | payer MEDICARE, BC ==
[2020-03-02 07:21] LABS: HEMATOCRIT 37.3 % (37.0-47.0); HEMOGLOBIN 11.4 g/dL (12.5-16.0); MEAN CELL VOLUME 90 fl (78-100); MEAN CORPUSCULAR HEMOGLOBIN 28 pg (27-31); MEAN CORPUSCULAR HGB CONC 31 g/dL (33-37); MEAN PLATELET VOLUME 9.3 fl (7.4-10.4); PLATELET COUNT 174 K/mm3 (130-400); RED BLOOD COUNT 4.14 M/mm3 (4.10-5.30); RED CELL DISTRIBUTION WIDTH 15.1 % (11.5-14.5)
[2020-03-02 07:46] LABS: WHITE BLOOD COUNT 1.9 K/mm3 (4.8-10.8)
[2020-03-02 08:10] LABS: BAND 2 % (0-10); LYMPHOCYTE 30 % (20-51); MONOCYTE 12 % (3-10); NEUTROPHILS 54 % (42-75)
[2020-03-02 08:11] LABS: OVALOCYTES 1+
== END ==
LOC: LAB 07:08
DX: Z48.298 Encounter for aftercare following other organ transplant (principal); Z94.2 Lung transplant status; Z79.899 Other long term (current) drug therapy

== ENCOUNTER → 2020-03-04 | Outpatient (CLI) | payer MEDICARE, BC ==
[~2020-03-04] VITALS: Ht 170.2 cm; Wt 87.0 kg
[2020-03-04 09:51] VITALS: BP 137/68
== END ==
LOC: AMSURD 09:39
DX: D70.9 Neutropenia, unspecified (principal)
CPT/HCPCS: Q5120

== ENCOUNTER → 2020-03-24 | Outpatient (CLI) | payer MEDICARE, BC ==
[2020-03-04 09:51] VITALS: BP 137/68
[2020-03-24 07:23] LABS: HEMATOCRIT 36.2 % (37.0-47.0); HEMOGLOBIN 11.4 g/dL (12.5-16.0); MEAN CELL VOLUME 90 fl (78-100); MEAN CORPUSCULAR HEMOGLOBIN 28 pg (27-31); MEAN CORPUSCULAR HGB CONC 32 g/dL (33-37); MEAN PLATELET VOLUME 8.7 fl (7.4-10.4); PLATELET COUNT 236 K/mm3 (130-400); RED BLOOD COUNT 4.02 M/mm3 (4.10-5.30); RED CELL DISTRIBUTION WIDTH 16.1 % (11.5-14.5); WHITE BLOOD COUNT 2.4 K/mm3 (4.8-10.8)
[2020-03-24 07:42] LABS: ALBUMIN 3.9 g/dL (3.4-4.8); POTASSIUM 4.7 mmol/L (3.5-5.1)
[2020-03-24 07:43] LABS: CALCIUM 8.9 mg/dL (8.3-10.5)
[2020-03-24 07:44] LABS: TOTAL PROTEIN 6.9 g/dL (6.2-8.1)
[2020-03-24 07:46] LABS: BAND 3 % (0-10); LYMPHOCYTE 25 % (20-51); MONOCYTE 8 % (3-10); NEUTROPHILS 64 % (42-75); TOTAL BILIRUBIN 0.4 mg/dL (0.2-1.2)
[2020-03-24 07:47] LABS: OVALOCYTES 1+
[2020-03-24 07:51] LABS: MAGNESIUM 2.13 mg/dL (1.60-2.60)
== END ==
LOC: LAB 07:06
PROVIDERS: Internal Medicine Rheumatology
DX: Z48.298 Encounter for aftercare following other organ transplant (principal); Z94.2 Lung transplant status; Z79.899 Other long term (current) drug therapy

== ENCOUNTER → 2020-04-05 | Outpatient (CLI) | payer MEDICARE, BC ==
[2020-03-04 09:51] VITALS: BP 137/68
[2020-04-05 07:38] LABS: HEMATOCRIT 37.7 % (37.0-47.0); HEMOGLOBIN 11.6 g/dL (12.5-16.0); MEAN CELL VOLUME 90 fl (78-100); MEAN CORPUSCULAR HEMOGLOBIN 28 pg (27-31); MEAN CORPUSCULAR HGB CONC 31 g/dL (33-37); MEAN PLATELET VOLUME 9.2 fl (7.4-10.4); PLATELET COUNT 217 K/mm3 (130-400); RED BLOOD COUNT 4.21 M/mm3 (4.10-5.30); RED CELL DISTRIBUTION WIDTH 15.9 % (11.5-14.5); WHITE BLOOD COUNT 2.3 K/mm3 (4.8-10.8)
[2020-04-05 07:42] LABS: TOTAL PROTEIN 6.9 g/dL (6.2-8.1)
[2020-04-05 07:44] LABS: TOTAL BILIRUBIN 0.3 mg/dL (0.2-1.2)
[2020-04-05 07:49] LABS: MAGNESIUM 2.24 mg/dL (1.60-2.60)
[2020-04-05 08:24] LABS: BAND 6 % (0-10); LYMPHOCYTE 20 % (20-51); MONOCYTE 4 % (3-10); NEUTROPHILS 70 % (42-75); POLYCHROMASIA 1+
== END ==
LOC: LAB 07:05
PROVIDERS: Internal Medicine
DX: Z48.298 Encounter for aftercare following other organ transplant (principal); Z79.899 Other long term (current) drug therapy; Z94.2 Lung transplant status

== ENCOUNTER → 2020-04-07 | Outpatient (CLI) | payer MEDICARE, BC ==
[2020-03-04 09:51] VITALS: BP 137/68
== END ==
LOC: LAB 13:59
DX: Z48.298 Encounter for aftercare following other organ transplant (principal); Z79.899 Other long term (current) drug therapy; Z94.2 Lung transplant status

== ENCOUNTER → 2020-04-12 | Outpatient (CLI) | payer MEDICARE, BC ==
[2020-03-04 09:51] VITALS: BP 137/68
[2020-04-12 07:25] LABS: HEMATOCRIT 38.5 % (37.0-47.0); HEMOGLOBIN 11.9 g/dL (12.5-16.0); MEAN CELL VOLUME 90 fl (78-100); MEAN CORPUSCULAR HEMOGLOBIN 28 pg (27-31); MEAN CORPUSCULAR HGB CONC 31 g/dL (33-37); MEAN PLATELET VOLUME 9.8 fl (7.4-10.4); PLATELET COUNT 180 K/mm3 (130-400); RED CELL DISTRIBUTION WIDTH 16.1 % (11.5-14.5); WHITE BLOOD COUNT 2.3 K/mm3 (4.8-10.8)
[2020-04-12 07:32] LABS: ALBUMIN 3.7 g/dL (3.4-4.8); POTASSIUM 4.7 mmol/L (3.5-5.1)
[2020-04-12 07:34] LABS: CALCIUM 8.7 mg/dL (8.3-10.5)
[2020-04-12 07:35] LABS: TOTAL PROTEIN 6.4 g/dL (6.2-8.1)
[2020-04-12 08:02] LABS: MAGNESIUM 2.07 mg/dL (1.60-2.60)
[2020-04-12 08:11] LABS: TOTAL BILIRUBIN 0.2 mg/dL (0.2-1.2)
[2020-04-12 08:21] LABS: BAND 7 % (0-10); LYMPHOCYTE 17 % (20-51); MONOCYTE 8 % (3-10); NEUTROPHILS 67 % (42-75)
[2020-04-12 15:12] LABS: NEU # 1.5 (1.40-6.50)
== END ==
LOC: LAB 07:03
DX: Z48.298 Encounter for aftercare following other organ transplant (principal); Z79.899 Other long term (current) drug therapy; Z94.2 Lung transplant status

== ENCOUNTER → 2020-04-16 | Outpatient (CLI) | payer MEDICARE, BC ==
[2020-03-04 09:51] VITALS: BP 137/68
== END ==
LOC: LAB 10:01
DX: Z01.818 Encounter for other preprocedural examination (principal); R06.02 Shortness of breath

== ENCOUNTER → 2020-04-21 | Outpatient (CLI) | payer MEDICARE, BC ==
[2020-03-04 09:51] VITALS: BP 137/68
[2020-04-21 07:28] LABS: HEMOGLOBIN 12.9 g/dL (12.5-16.0); MEAN CELL VOLUME 88 fl (78-100); MEAN CORPUSCULAR HEMOGLOBIN 28 pg (27-31); MEAN CORPUSCULAR HGB CONC 32 g/dL (33-37); MEAN PLATELET VOLUME 9.4 fl (7.4-10.4); PLATELET COUNT 168 K/mm3 (130-400); RED BLOOD COUNT 4.65 M/mm3 (4.10-5.30); RED CELL DISTRIBUTION WIDTH 15.7 % (11.5-14.5)
[2020-04-21 07:43] LABS: ALBUMIN 3.8 g/dL (3.4-4.8); POTASSIUM 5.1 mmol/L (3.5-5.1)
[2020-04-21 07:46] LABS: TOTAL PROTEIN 6.7 g/dL (6.2-8.1)
[2020-04-21 07:48] LABS: TOTAL BILIRUBIN 0.4 mg/dL (0.2-1.2)
[2020-04-21 07:52] LABS: MAGNESIUM 2.02 mg/dL (1.60-2.60)
[2020-04-21 09:54] LABS: WHITE BLOOD COUNT 1.6 K/mm3 (4.8-10.8)
[2020-04-21 09:58] LABS: BAND 3 % (0-10); LYMPHOCYTE 28 % (20-51); NEUTROPHILS 58 % (42-75)
[2020-04-21 09:59] LABS: MONOCYTE 10 % (3-10)
== END ==
LOC: LAB 07:07
DX: Z48.298 Encounter for aftercare following other organ transplant (principal); Z94.2 Lung transplant status; Z79.899 Other long term (current) drug therapy

== ENCOUNTER → 2020-04-27 | Outpatient (CLI) | payer MEDICARE, BC ==
[2020-03-04 09:51] VITALS: BP 137/68
[2020-04-27 07:24] LABS: HEMATOCRIT 38.6 % (37.0-47.0); HEMOGLOBIN 12.2 g/dL (12.5-16.0); MEAN CELL VOLUME 87 fl (78-100); MEAN CORPUSCULAR HEMOGLOBIN 27 pg (27-31); MEAN CORPUSCULAR HGB CONC 32 g/dL (33-37); MEAN PLATELET VOLUME 9.5 fl (7.4-10.4); PLATELET COUNT 142 K/mm3 (130-400); RED BLOOD COUNT 4.45 M/mm3 (4.10-5.30); RED CELL DISTRIBUTION WIDTH 15.8 % (11.5-14.5); WHITE BLOOD COUNT 7.6 K/mm3 (4.8-10.8)
[2020-04-27 07:36] LABS: ALBUMIN 3.8 g/dL (3.4-4.8); POTASSIUM 4.5 mmol/L (3.5-5.1)
[2020-04-27 07:39] LABS: TOTAL PROTEIN 6.5 g/dL (6.2-8.1)
[2020-04-27 07:40] LABS: TOTAL BILIRUBIN 0.3 mg/dL (0.2-1.2)
[2020-04-27 07:45] LABS: MAGNESIUM 2.08 mg/dL (1.60-2.60)
[2020-04-27 08:06] LABS: BAND 18 % (0-10); LYMPHOCYTE 16 % (20-51); METAMYELOCYTE 8 % (0-0); MONOCYTE 7 % (3-10); MYELOCYTE 1 % (0-0); NEUTROPHILS 50 % (42-75); OVALOCYTES 2+
== END ==
LOC: LAB 07:05
PROVIDERS: Internal Medicine Rheumatology
DX: Z48.298 Encounter for aftercare following other organ transplant (principal); Z94.2 Lung transplant status; Z79.899 Other long term (current) drug therapy

== ENCOUNTER → 2020-05-04 | Outpatient (CLI) | payer MEDICARE, BC ==
[2020-03-04 09:51] VITALS: BP 137/68
[2020-05-04 07:45] LABS: HEMATOCRIT 37.1 % (37.0-47.0); HEMOGLOBIN 11.5 g/dL (12.5-16.0); MEAN CELL VOLUME 88 fl (78-100); MEAN CORPUSCULAR HEMOGLOBIN 27 pg (27-31); MEAN CORPUSCULAR HGB CONC 31 g/dL (33-37); MEAN PLATELET VOLUME 10.3 fl (7.4-10.4); PLATELET COUNT 112 K/mm3 (130-400); RED BLOOD COUNT 4.23 M/mm3 (4.10-5.30); RED CELL DISTRIBUTION WIDTH 16.1 % (11.5-14.5)
[2020-05-04 07:49] LABS: ALBUMIN 3.7 g/dL (3.4-4.8); POTASSIUM 3.9 mmol/L (3.5-5.1)
[2020-05-04 07:50] LABS: CALCIUM 8.7 mg/dL (8.3-10.5)
[2020-05-04 07:51] LABS: TOTAL PROTEIN 5.8 g/dL (6.2-8.1)
[2020-05-04 07:53] LABS: TOTAL BILIRUBIN 0.2 mg/dL (0.2-1.2)
[2020-05-04 07:58] LABS: MAGNESIUM 2.25 mg/dL (1.60-2.60)
[2020-05-04 10:26] LABS: BAND 7 % (0-10); LYMPHOCYTE 5 % (20-51); MONOCYTE 5 % (3-10); NEUTROPHILS 82 % (42-75); OVALOCYTES 1+
== END ==
LOC: LAB 07:04
PROVIDERS: Internal Medicine Rheumatology
DX: Z48.298 Encounter for aftercare following other organ transplant (principal); Z94.2 Lung transplant status; Z79.899 Other long term (current) drug therapy

== ENCOUNTER 2020-05-19 13:00 | Outpatient (RCR) | payer MEDICARE, BC | END 2020-05-27 | disposition home or self-care (01) | LOC: PT | DX: M62.81 Muscle weakness (generalized) (principal); Z94.2 Lung transplant status ==

== ENCOUNTER → 2020-05-20 | Outpatient (CLI) | payer MEDICARE, BC ==
[2020-03-04 09:51] VITALS: BP 137/68
[2020-05-20 07:29] LABS: HEMATOCRIT 35.5 % (37.0-47.0); HEMOGLOBIN 10.9 g/dL (12.5-16.0); MEAN CELL VOLUME 90 fl (78-100); MEAN CORPUSCULAR HEMOGLOBIN 28 pg (27-31); MEAN CORPUSCULAR HGB CONC 31 g/dL (33-37); MEAN PLATELET VOLUME 9.2 fl (7.4-10.4); PLATELET COUNT 219 K/mm3 (130-400); RED BLOOD COUNT 3.94 M/mm3 (4.10-5.30); RED CELL DISTRIBUTION WIDTH 16.6 % (11.5-14.5)
[2020-05-20 07:35] LABS: ALBUMIN 3.7 g/dL (3.4-4.8)
[2020-05-20 07:36] LABS: POTASSIUM 4.3 mmol/L (3.5-5.1)
[2020-05-20 07:37] LABS: CALCIUM 8.6 mg/dL (8.3-10.5)
[2020-05-20 07:38] LABS: TOTAL PROTEIN 6.1 g/dL (6.2-8.1)
[2020-05-20 07:40] LABS: TOTAL BILIRUBIN 0.4 mg/dL (0.2-1.2)
[2020-05-20 07:44] LABS: MAGNESIUM 2.27 mg/dL (1.60-2.60)
[2020-05-20 08:29] LABS: WHITE BLOOD COUNT 1.9 K/mm3 (4.8-10.8)
[2020-05-20 08:30] LABS: BAND 10 % (0-10); LYMPHOCYTE 15 % (20-51); MONOCYTE 11 % (3-10); NEUTROPHILS 56 % (42-75); OVALOCYTES 1+
== END ==
LOC: LAB 07:04
PROVIDERS: Internal Medicine
DX: Z48.298 Encounter for aftercare following other organ transplant (principal); Z79.899 Other long term (current) drug therapy; Z94.2 Lung transplant status

== ENCOUNTER → 2020-05-24 | Outpatient (CLI) | payer MEDICARE, BC ==
[2020-03-04 09:51] VITALS: BP 137/68
[2020-05-24 07:42] LABS: HEMATOCRIT 37.3 % (37.0-47.0); HEMOGLOBIN 11.2 g/dL (12.5-16.0); MEAN CELL VOLUME 91 fl (78-100); MEAN CORPUSCULAR HEMOGLOBIN 27 pg (27-31); MEAN CORPUSCULAR HGB CONC 30 g/dL (33-37); MEAN PLATELET VOLUME 9.5 fl (7.4-10.4); PLATELET COUNT 150 K/mm3 (130-400); RED CELL DISTRIBUTION WIDTH 17.8 % (11.5-14.5); WHITE BLOOD COUNT 10.3 K/mm3 (4.8-10.8)
[2020-05-24 07:56] LABS: ALBUMIN 3.5 g/dL (3.4-4.8); POTASSIUM 3.6 mmol/L (3.5-5.1)
[2020-05-24 07:57] LABS: CALCIUM 8.4 mg/dL (8.3-10.5)
[2020-05-24 07:59] LABS: TOTAL PROTEIN 5.8 g/dL (6.2-8.1)
[2020-05-24 08:00] LABS: TOTAL BILIRUBIN 0.2 mg/dL (0.2-1.2)
[2020-05-24 08:04] LABS: BAND 28 % (0-10); LYMPHOCYTE 14 % (20-51); METAMYELOCYTE 5 % (0-0); MONOCYTE 9 % (3-10); NEUTROPHILS 42 % (42-75); OVALOCYTES 1+; POLYCHROMASIA 1+
[2020-05-24 08:05] LABS: MAGNESIUM 2.16 mg/dL (1.60-2.60)
[2020-05-24 09:17] LABS: NEU # 6.8 (1.40-6.50)
== END ==
LOC: LAB 07:13
DX: Z94.2 Lung transplant status (principal); Z79.899 Other long term (current) drug therapy; Z48.298 Encounter for aftercare following other organ transplant

== ENCOUNTER → 2020-05-25 | Outpatient (CLI) | payer MEDICARE, BC ==
[2020-03-04 09:51] VITALS: BP 137/68
== END ==
LOC: LAB 07:21
DX: R06.00 Dyspnea, unspecified (principal); R06.02 Shortness of breath; R53.83 Other fatigue; Z20.828 Contact with and (suspected) exposure to other viral communicable diseases; Z94.2 Lung transplant status

== ENCOUNTER → 2020-05-26 | Outpatient (CLI) | payer MEDICARE, BC ==
[2020-03-04 09:51] VITALS: BP 137/68
== END ==
LOC: LAB 15:37
DX: Z94.2 Lung transplant status (principal)

== ENCOUNTER 2020-06-02 13:29 | Outpatient (RCR) | payer MEDICARE, BC ==
[2020-03-04 09:51] VITALS: BP 137/68
== END 2020-06-02 14:00 | disposition home or self-care (01) ==
LOC: PT 13:29
DX: R53.1 Weakness (principal); Z94.2 Lung transplant status

== ENCOUNTER → 2020-06-07 | Outpatient (CLI) | payer MEDICARE, BC ==
[2020-03-04 09:51] VITALS: BP 137/68
[2020-06-07 08:47] LABS: HEMOGLOBIN 11.3 g/dL (12.5-16.0); MEAN CELL VOLUME 93 fl (78-100); MEAN CORPUSCULAR HEMOGLOBIN 28 pg (27-31); MEAN CORPUSCULAR HGB CONC 31 g/dL (33-37); MEAN PLATELET VOLUME 9.8 fl (7.4-10.4); PLATELET COUNT 248 K/mm3 (130-400); RED BLOOD COUNT 3.99 M/mm3 (4.10-5.30); RED CELL DISTRIBUTION WIDTH 17.9 % (11.5-14.5); WHITE BLOOD COUNT 6.5 K/mm3 (4.8-10.8)
[2020-06-07 08:58] LABS: ALBUMIN 3.7 g/dL (3.4-4.8); POTASSIUM 4.2 mmol/L (3.5-5.1)
[2020-06-07 08:59] LABS: CALCIUM 8.5 mg/dL (8.3-10.5)
[2020-06-07 09:00] LABS: TOTAL PROTEIN 6.2 g/dL (6.2-8.1)
[2020-06-07 09:02] LABS: TOTAL BILIRUBIN 0.3 mg/dL (0.2-1.2)
[2020-06-07 09:07] LABS: MAGNESIUM 2.25 mg/dL (1.60-2.60)
[2020-06-07 09:47] LABS: BAND 1 % (0-10); MONOCYTE 7 % (3-10); NEUTROPHILS 80 % (42-75)
[2020-06-07 09:48] LABS: LYMPHOCYTE 10 % (20-51)
[2020-06-07 13:29] LABS: NEU # 5.3 (1.40-6.50)
== END ==
LOC: LAB 07:02
DX: Z48.298 Encounter for aftercare following other organ transplant (principal); Z94.2 Lung transplant status; Z79.899 Other long term (current) drug therapy

== ENCOUNTER → 2020-06-14 | Outpatient (CLI) | payer MEDICARE, BC ==
[2020-03-04 09:51] VITALS: BP 137/68
[2020-06-14 08:58] LABS: HEMATOCRIT 38.1 % (37.0-47.0); HEMOGLOBIN 11.5 g/dL (12.5-16.0); MEAN CELL VOLUME 93 fl (78-100); MEAN CORPUSCULAR HEMOGLOBIN 28 pg (27-31); MEAN CORPUSCULAR HGB CONC 30 g/dL (33-37); MEAN PLATELET VOLUME 9.8 fl (7.4-10.4); PLATELET COUNT 216 K/mm3 (130-400); RED BLOOD COUNT 4.09 M/mm3 (4.10-5.30); RED CELL DISTRIBUTION WIDTH 17.9 % (11.5-14.5); WHITE BLOOD COUNT 4.2 K/mm3 (4.8-10.8)
[2020-06-14 09:10] LABS: ALBUMIN 3.7 g/dL (3.4-4.8); POTASSIUM 4.6 mmol/L (3.5-5.1)
[2020-06-14 09:11] LABS: CALCIUM 8.6 mg/dL (8.3-10.5)
[2020-06-14 09:14] LABS: TOTAL BILIRUBIN 0.4 mg/dL (0.2-1.2)
[2020-06-14 09:19] LABS: MAGNESIUM 2.27 mg/dL (1.60-2.60)
[2020-06-14 10:00] LABS: NEU # 3.3 (1.40-6.50)
[2020-06-14 10:01] LABS: LYMPHOCYTE 12 % (20-51); MONOCYTE 9 % (3-10); NEUTROPHILS 78 % (42-75)
== END ==
LOC: LAB 07:10
DX: Z48.298 Encounter for aftercare following other organ transplant (principal); Z94.2 Lung transplant status; Z79.899 Other long term (current) drug therapy

== ENCOUNTER → 2020-06-21 | Outpatient (CLI) | payer MEDICARE, BC ==
[2020-03-04 09:51] VITALS: BP 137/68
[2020-06-21 07:53] LABS: EOS % 1.3 % (1.0-5.0); HEMOGLOBIN 12.4 g/dL (12.5-16.0); MEAN CELL VOLUME 94 fl (78-100); MEAN CORPUSCULAR HEMOGLOBIN 28 pg (27-31); MEAN CORPUSCULAR HGB CONC 30 g/dL (33-37); MEAN PLATELET VOLUME 9.7 fl (7.4-10.4); MONO # 0.2 (0.20-0.80); NEU # 2.1 (1.40-6.50); PLATELET COUNT 188 K/mm3 (130-400); RED BLOOD COUNT 4.37 M/mm3 (4.10-5.30); RED CELL DISTRIBUTION WIDTH 17.3 % (11.5-14.5)
[2020-06-21 07:54] LABS: ALBUMIN 3.9 g/dL (3.4-4.8); POTASSIUM 4.3 mmol/L (3.5-5.1)
[2020-06-21 07:55] LABS: CALCIUM 8.7 mg/dL (8.3-10.5); LYMPH# 0.7 (1.50-4.00)
[2020-06-21 07:57] LABS: TOTAL PROTEIN 6.5 g/dL (6.2-8.1)
[2020-06-21 07:58] LABS: TOTAL BILIRUBIN 0.4 mg/dL (0.2-1.2)
[2020-06-21 08:03] LABS: MAGNESIUM 2.14 mg/dL (1.60-2.60)
== END ==
LOC: LAB 07:20
DX: Z48.298 Encounter for aftercare following other organ transplant (principal); Z79.899 Other long term (current) drug therapy; Z94.2 Lung transplant status

== ENCOUNTER → 2020-07-05 | Outpatient (CLI) | payer MEDICARE, BC ==
[2020-03-04 09:51] VITALS: BP 137/68
[2020-07-05 07:47] LABS: HEMATOCRIT 41.1 % (37.0-47.0); HEMOGLOBIN 12.8 g/dL (12.5-16.0); MEAN CELL VOLUME 93 fl (78-100); MEAN CORPUSCULAR HEMOGLOBIN 29 pg (27-31); MEAN CORPUSCULAR HGB CONC 31 g/dL (33-37); MEAN PLATELET VOLUME 9.1 fl (7.4-10.4); PLATELET COUNT 168 K/mm3 (130-400); RED BLOOD COUNT 4.42 M/mm3 (4.10-5.30); RED CELL DISTRIBUTION WIDTH 16.6 % (11.5-14.5); WHITE BLOOD COUNT 2.5 K/mm3 (4.8-10.8)
[2020-07-05 07:56] LABS: ALBUMIN 3.8 g/dL (3.4-4.8); POTASSIUM 4.3 mmol/L (3.5-5.1)
[2020-07-05 07:57] LABS: CALCIUM 8.6 mg/dL (8.3-10.5)
[2020-07-05 07:58] LABS: TOTAL PROTEIN 6.4 g/dL (6.2-8.1)
[2020-07-05 08:00] LABS: TOTAL BILIRUBIN 0.3 mg/dL (0.2-1.2)
[2020-07-05 08:06] LABS: MAGNESIUM 2.26 mg/dL (1.60-2.60)
[2020-07-05 09:51] LABS: BAND 1 % (0-10); LYMPHOCYTE 20 % (20-51); MONOCYTE 11 % (3-10); NEUTROPHILS 67 % (42-75); OVALOCYTES 1+
== END ==
LOC: LAB 07:08
DX: Z48.298 Encounter for aftercare following other organ transplant (principal); Z94.2 Lung transplant status; Z79.899 Other long term (current) drug therapy

== ENCOUNTER → 2020-07-12 | Outpatient (CLI) | payer MEDICARE, BC ==
[2020-03-04 09:51] VITALS: BP 137/68
[2020-07-12 07:26] LABS: HEMATOCRIT 41.1 % (37.0-47.0); MEAN CELL VOLUME 93 fl (78-100); MEAN CORPUSCULAR HEMOGLOBIN 29 pg (27-31); MEAN CORPUSCULAR HGB CONC 32 g/dL (33-37); MEAN PLATELET VOLUME 9.1 fl (7.4-10.4); PLATELET COUNT 178 K/mm3 (130-400); RED BLOOD COUNT 4.43 M/mm3 (4.10-5.30); RED CELL DISTRIBUTION WIDTH 16.2 % (11.5-14.5); WHITE BLOOD COUNT 2.3 K/mm3 (4.8-10.8)
[2020-07-12 07:42] LABS: ALBUMIN 3.7 g/dL (3.4-4.8); POTASSIUM 4.2 mmol/L (3.5-5.1)
[2020-07-12 07:43] LABS: CALCIUM 8.6 mg/dL (8.3-10.5)
[2020-07-12 07:45] LABS: TOTAL PROTEIN 6.4 g/dL (6.2-8.1)
[2020-07-12 07:46] LABS: TOTAL BILIRUBIN 0.3 mg/dL (0.2-1.2)
[2020-07-12 07:51] LABS: MAGNESIUM 2.57 mg/dL (1.60-2.60)
[2020-07-12 07:55] LABS: LYMPHOCYTE 25 % (20-51); MONOCYTE 3 % (3-10); NEUTROPHILS 72 % (42-75); OVALOCYTES 1+
== END ==
LOC: LAB 07:03
DX: Z48.298 Encounter for aftercare following other organ transplant (principal); Z79.899 Other long term (current) drug therapy; Z94.2 Lung transplant status

== ENCOUNTER → 2020-07-19 | Outpatient (CLI) | payer MEDICARE, BC ==
[2020-03-04 09:51] VITALS: BP 137/68
[~2020-07-19] MED LIST changes: -ASPIRIN ADULT L81 M3 PO; +ASPIRIN E.C. 8181 MG PO
[2020-07-19 07:24] LABS: HEMATOCRIT 39.9 % (37.0-47.0); HEMOGLOBIN 12.4 g/dL (12.5-16.0); MEAN CELL VOLUME 94 fl (78-100); MEAN CORPUSCULAR HEMOGLOBIN 29 pg (27-31); MEAN CORPUSCULAR HGB CONC 31 g/dL (33-37); PLATELET COUNT 178 K/mm3 (130-400); RED BLOOD COUNT 4.25 M/mm3 (4.10-5.30); RED CELL DISTRIBUTION WIDTH 15.9 % (11.5-14.5)
[2020-07-19 07:38] LABS: ALBUMIN 3.6 g/dL (3.4-4.8); POTASSIUM 4.5 mmol/L (3.5-5.1)
[2020-07-19 07:39] LABS: CALCIUM 8.5 mg/dL (8.3-10.5)
[2020-07-19 07:41] LABS: TOTAL PROTEIN 6.2 g/dL (6.2-8.1)
[2020-07-19 07:42] LABS: TOTAL BILIRUBIN 0.3 mg/dL (0.2-1.2)
[2020-07-19 07:47] LABS: MAGNESIUM 2.58 mg/dL (1.60-2.60)
[2020-07-19 08:21] LABS: WHITE BLOOD COUNT 1.8 K/mm3 (4.8-10.8)
== END ==
LOC: LAB 06:58
DX: Z48.298 Encounter for aftercare following other organ transplant (principal); Z79.899 Other long term (current) drug therapy; Z94.2 Lung transplant status

== ENCOUNTER → 2020-07-22 | Outpatient (CLI) | payer MEDICARE, BC ==
[2020-03-04 09:51] VITALS: BP 137/68
[2020-07-22 07:37] LABS: ALBUMIN 3.7 g/dL (3.4-4.8)
[2020-07-22 07:38] LABS: POTASSIUM 4.6 mmol/L (3.5-5.1)
[2020-07-22 07:39] LABS: CALCIUM 8.6 mg/dL (8.3-10.5)
[2020-07-22 07:40] LABS: TOTAL PROTEIN 6.4 g/dL (6.2-8.1)
[2020-07-22 07:42] LABS: TOTAL BILIRUBIN 0.3 mg/dL (0.2-1.2)
[2020-07-22 07:47] LABS: MAGNESIUM 2.23 mg/dL (1.60-2.60)
[2020-07-22 08:06] LABS: HEMATOCRIT 40.2 % (37.0-47.0); HEMOGLOBIN 12.5 g/dL (12.5-16.0); MEAN CELL VOLUME 93 fl (78-100); MEAN CORPUSCULAR HEMOGLOBIN 29 pg (27-31); MEAN CORPUSCULAR HGB CONC 31 g/dL (33-37); MEAN PLATELET VOLUME 9.5 fl (7.4-10.4); PLATELET COUNT 178 K/mm3 (130-400); RED BLOOD COUNT 4.34 M/mm3 (4.10-5.30); RED CELL DISTRIBUTION WIDTH 15.7 % (11.5-14.5)
[2020-07-22 08:24] LABS: LYMPHOCYTE 37 % (20-51); MONOCYTE 8 % (3-10); OVALOCYTES 1+; WHITE BLOOD COUNT 1.8 K/mm3 (4.8-10.8)
[2020-07-22 08:26] LABS: NEUTROPHILS 54 % (42-75)
== END ==
LOC: LAB 07:07
DX: Z48.288 Encounter for aftercare following multiple organ transplant (principal); Z79.899 Other long term (current) drug therapy; Z94.2 Lung transplant status

== ENCOUNTER → 2020-08-02 | Outpatient (CLI) | payer MEDICARE, BC ==
[2020-03-04 09:51] VITALS: BP 137/68
[2020-08-02 07:20] LABS: HEMATOCRIT 39.8 % (37.0-47.0); HEMOGLOBIN 12.6 g/dL (12.5-16.0); MEAN CELL VOLUME 94 fl (78-100); MEAN CORPUSCULAR HEMOGLOBIN 30 pg (27-31); MEAN CORPUSCULAR HGB CONC 32 g/dL (33-37); PLATELET COUNT 112 K/mm3 (130-400); RED BLOOD COUNT 4.24 M/mm3 (4.10-5.30); RED CELL DISTRIBUTION WIDTH 15.8 % (11.5-14.5); WHITE BLOOD COUNT 7.8 K/mm3 (4.8-10.8)
[2020-08-02 08:04] LABS: BAND 3 % (0-10); LYMPHOCYTE 13 % (20-51); METAMYELOCYTE 2 % (0-0); MONOCYTE 1 % (3-10); NEUTROPHILS 81 % (42-75); OVALOCYTES 1+
[2020-08-02 09:13] LABS: ALBUMIN 3.9 g/dL (3.4-4.8); POTASSIUM 4.3 mmol/L (3.5-5.1)
[2020-08-02 09:15] LABS: CALCIUM 8.9 mg/dL (8.3-10.5)
[2020-08-02 09:16] LABS: TOTAL PROTEIN 6.4 g/dL (6.2-8.1)
[2020-08-02 09:18] LABS: TOTAL BILIRUBIN 0.2 mg/dL (0.2-1.2)
[2020-08-02 09:23] LABS: MAGNESIUM 2.21 mg/dL (1.60-2.60)
== END ==
LOC: LAB 07:02
DX: Z48.298 Encounter for aftercare following other organ transplant (principal); Z94.2 Lung transplant status; Z79.899 Other long term (current) drug therapy

== ENCOUNTER → 2020-08-09 | Outpatient (CLI) | payer MEDICARE, BC ==
[2020-03-04 09:51] VITALS: BP 137/68
[2020-08-09 07:25] LABS: EOS % 0.4 % (1.0-5.0); HEMATOCRIT 39.1 % (37.0-47.0); HEMOGLOBIN 12.5 g/dL (12.5-16.0); LYMPH# 0.8 (1.50-4.00); MEAN CELL VOLUME 94 fl (78-100); MEAN CORPUSCULAR HEMOGLOBIN 30 pg (27-31); MEAN CORPUSCULAR HGB CONC 32 g/dL (33-37); MEAN PLATELET VOLUME 9.2 fl (7.4-10.4); MONO # 0.4 (0.20-0.80); NEU # 3.8 (1.40-6.50); PLATELET COUNT 216 K/mm3 (130-400); RED BLOOD COUNT 4.14 M/mm3 (4.10-5.30); RED CELL DISTRIBUTION WIDTH 15.9 % (11.5-14.5); WHITE BLOOD COUNT 5.1 K/mm3 (4.8-10.8)
[2020-08-09 07:53] LABS: ALBUMIN 3.9 g/dL (3.4-4.8); POTASSIUM 4.6 mmol/L (3.5-5.1)
[2020-08-09 07:54] LABS: CALCIUM 9.1 mg/dL (8.3-10.5)
[2020-08-09 07:55] LABS: TOTAL PROTEIN 6.4 g/dL (6.2-8.1)
[2020-08-09 07:57] LABS: TOTAL BILIRUBIN 0.4 mg/dL (0.2-1.2)
[2020-08-09 08:02] LABS: MAGNESIUM 2.23 mg/dL (1.60-2.60)
== END ==
LOC: LAB 07:03
DX: Z48.298 Encounter for aftercare following other organ transplant (principal); Z94.2 Lung transplant status; Z79.899 Other long term (current) drug therapy

== ENCOUNTER → 2020-08-16 | Outpatient (CLI) | payer MEDICARE, BC ==
[2020-03-04 09:51] VITALS: BP 137/68
[2020-08-16 08:00] LABS: HEMOGLOBIN 12.4 g/dL (12.5-16.0); MEAN CELL VOLUME 94 fl (78-100); MEAN CORPUSCULAR HEMOGLOBIN 30 pg (27-31); MEAN CORPUSCULAR HGB CONC 32 g/dL (33-37); MEAN PLATELET VOLUME 9.3 fl (7.4-10.4); PLATELET COUNT 211 K/mm3 (130-400); RED BLOOD COUNT 4.14 M/mm3 (4.10-5.30); RED CELL DISTRIBUTION WIDTH 15.6 % (11.5-14.5); WHITE BLOOD COUNT 2.6 K/mm3 (4.8-10.8)
[2020-08-16 08:01] LABS: ALBUMIN 3.8 g/dL (3.4-4.8)
[2020-08-16 08:02] LABS: POTASSIUM 4.5 mmol/L (3.5-5.1)
[2020-08-16 08:04] LABS: TOTAL PROTEIN 6.2 g/dL (6.2-8.1)
[2020-08-16 08:06] LABS: TOTAL BILIRUBIN 0.4 mg/dL (0.2-1.2)
[2020-08-16 08:10] LABS: MAGNESIUM 2.23 mg/dL (1.60-2.60)
[2020-08-16 08:41] LABS: LYMPHOCYTE 25 % (20-51); MONOCYTE 5 % (3-10); NEUTROPHILS 67 % (42-75)
[2020-08-16 08:42] LABS: OVALOCYTES 1+
== END ==
LOC: LAB 07:03
DX: Z48.288 Encounter for aftercare following multiple organ transplant (principal); Z94.2 Lung transplant status; Z79.899 Other long term (current) drug therapy

== ENCOUNTER → 2020-08-19 | Outpatient (CLI) | payer MEDICARE, BC ==
[2020-03-04 09:51] VITALS: BP 137/68
[2020-08-19 07:46] LABS: HEMATOCRIT 43.3 % (37.0-47.0); HEMOGLOBIN 13.8 g/dL (12.5-16.0); MEAN CELL VOLUME 94 fl (78-100); MEAN CORPUSCULAR HEMOGLOBIN 30 pg (27-31); MEAN CORPUSCULAR HGB CONC 32 g/dL (33-37); MEAN PLATELET VOLUME 9.4 fl (7.4-10.4); PLATELET COUNT 215 K/mm3 (130-400); RED CELL DISTRIBUTION WIDTH 15.5 % (11.5-14.5); WHITE BLOOD COUNT 2.6 K/mm3 (4.8-10.8)
[2020-08-19 07:51] LABS: ALBUMIN 4.1 g/dL (3.4-4.8); POTASSIUM 4.6 mmol/L (3.5-5.1)
[2020-08-19 07:52] LABS: CALCIUM 9.2 mg/dL (8.3-10.5)
[2020-08-19 07:53] LABS: TOTAL PROTEIN 6.7 g/dL (6.2-8.1)
[2020-08-19 07:55] LABS: TOTAL BILIRUBIN 0.3 mg/dL (0.2-1.2)
[2020-08-19 08:00] LABS: MAGNESIUM 2.25 mg/dL (1.60-2.60)
[2020-08-19 08:50] LABS: LYMPHOCYTE 25 % (20-51); MONOCYTE 7 % (3-10); NEUTROPHILS 66 % (42-75); OVALOCYTES 1+
== END ==
LOC: LAB 07:04
PROVIDERS: Internal Medicine
DX: Z48.288 Encounter for aftercare following multiple organ transplant (principal); Z79.899 Other long term (current) drug therapy; Z94.2 Lung transplant status

== ENCOUNTER → 2020-08-23 | Outpatient (CLI) | payer MEDICARE, BC ==
[2020-03-04 09:51] VITALS: BP 137/68
[2020-08-23 07:26] LABS: HEMATOCRIT 41.7 % (37.0-47.0); MEAN CELL VOLUME 96 fl (78-100); MEAN CORPUSCULAR HEMOGLOBIN 30 pg (27-31); MEAN CORPUSCULAR HGB CONC 31 g/dL (33-37); MEAN PLATELET VOLUME 9.2 fl (7.4-10.4); PLATELET COUNT 209 K/mm3 (130-400); RED BLOOD COUNT 4.36 M/mm3 (4.10-5.30); RED CELL DISTRIBUTION WIDTH 15.2 % (11.5-14.5); WHITE BLOOD COUNT 2.4 K/mm3 (4.8-10.8)
[2020-08-23 07:27] LABS: ALBUMIN 3.9 g/dL (3.4-4.8); POTASSIUM 4.9 mmol/L (3.5-5.1)
[2020-08-23 07:29] LABS: CALCIUM 8.9 mg/dL (8.3-10.5)
[2020-08-23 07:30] LABS: TOTAL PROTEIN 6.4 g/dL (6.2-8.1)
[2020-08-23 07:32] LABS: TOTAL BILIRUBIN 0.3 mg/dL (0.2-1.2)
[2020-08-23 07:37] LABS: MAGNESIUM 2.2 mg/dL (1.60-2.60)
[2020-08-23 07:46] LABS: LYMPHOCYTE 35 % (20-51); MONOCYTE 4 % (3-10)
[2020-08-23 07:47] LABS: NEUTROPHILS 58 % (42-75); OVALOCYTES 1+
== END ==
LOC: LAB 07:01
DX: Z48.298 Encounter for aftercare following other organ transplant (principal); Z94.2 Lung transplant status; Z79.899 Other long term (current) drug therapy

== ENCOUNTER → 2020-09-06 | Outpatient (CLI) | payer MEDICARE, BC ==
[2020-03-04 09:51] VITALS: BP 137/68
[2020-09-06 07:32] LABS: HEMATOCRIT 39.4 % (37.0-47.0); HEMOGLOBIN 12.4 g/dL (12.5-16.0); MEAN CELL VOLUME 96 fl (78-100); MEAN CORPUSCULAR HEMOGLOBIN 30 pg (27-31); MEAN CORPUSCULAR HGB CONC 32 g/dL (33-37); MEAN PLATELET VOLUME 9.8 fl (7.4-10.4); PLATELET COUNT 140 K/mm3 (130-400); RED BLOOD COUNT 4.12 M/mm3 (4.10-5.30); RED CELL DISTRIBUTION WIDTH 15.1 % (11.5-14.5)
[2020-09-06 07:34] LABS: ALBUMIN 3.8 g/dL (3.4-4.8); POTASSIUM 4.2 mmol/L (3.5-5.1)
[2020-09-06 07:35] LABS: CALCIUM 8.8 mg/dL (8.3-10.5)
[2020-09-06 07:36] LABS: TOTAL PROTEIN 6.3 g/dL (6.2-8.1)
[2020-09-06 07:38] LABS: TOTAL BILIRUBIN 0.2 mg/dL (0.2-1.2)
[2020-09-06 07:43] LABS: MAGNESIUM 2.09 mg/dL (1.60-2.60)
[2020-09-06 07:50] LABS: BAND 2 % (0-10); LYMPHOCYTE 6 % (20-51); MONOCYTE 7 % (3-10); NEUTROPHILS 84 % (42-75); OVALOCYTES 1+
== END ==
LOC: LAB 07:05
DX: Z48.298 Encounter for aftercare following other organ transplant (principal); Z94.2 Lung transplant status; Z79.899 Other long term (current) drug therapy

== ENCOUNTER → 2020-09-10 | Outpatient (CLI) | payer MEDICARE, BC ==
[2020-03-04 09:51] VITALS: BP 137/68
== END ==
LOC: LAB 16:30
DX: Z48.298 Encounter for aftercare following other organ transplant (principal); Z79.899 Other long term (current) drug therapy; Z94.2 Lung transplant status

== ENCOUNTER → 2020-09-13 | Outpatient (CLI) | payer MEDICARE, BC ==
[2020-03-04 09:51] VITALS: BP 137/68
[2020-09-13 07:35] LABS: EOS % 0.4 % (1.0-5.0); HEMATOCRIT 39.8 % (37.0-47.0); HEMOGLOBIN 12.5 g/dL (12.5-16.0); MEAN CELL VOLUME 96 fl (78-100); MEAN CORPUSCULAR HEMOGLOBIN 30 pg (27-31); MEAN CORPUSCULAR HGB CONC 31 g/dL (33-37); MEAN PLATELET VOLUME 9.3 fl (7.4-10.4); MONO # 0.5 (0.20-0.80); NEU # 3.3 (1.40-6.50); PLATELET COUNT 220 K/mm3 (130-400); RED BLOOD COUNT 4.16 M/mm3 (4.10-5.30); RED CELL DISTRIBUTION WIDTH 15.1 % (11.5-14.5); WHITE BLOOD COUNT 4.6 K/mm3 (4.8-10.8)
[2020-09-13 07:43] LABS: LYMPH# 0.7 (1.50-4.00)
[2020-09-13 09:21] LABS: ALBUMIN 3.7 g/dL (3.4-4.8); POTASSIUM 4.5 mmol/L (3.5-5.1)
[2020-09-13 09:23] LABS: CALCIUM 8.8 mg/dL (8.3-10.5)
[2020-09-13 09:24] LABS: TOTAL PROTEIN 6.2 g/dL (6.2-8.1)
[2020-09-13 09:26] LABS: TOTAL BILIRUBIN 0.3 mg/dL (0.2-1.2)
[2020-09-13 09:31] LABS: MAGNESIUM 2.16 mg/dL (1.60-2.60)
== END ==
LOC: LAB 07:09
DX: Z48.298 Encounter for aftercare following other organ transplant (principal); Z94.2 Lung transplant status; Z79.899 Other long term (current) drug therapy

== ENCOUNTER → 2020-09-20 | Outpatient (CLI) | payer MEDICARE, BC ==
[2020-03-04 09:51] VITALS: BP 137/68
[2020-09-20 07:24] LABS: EOS % 0.5 % (1.0-5.0); HEMATOCRIT 40.4 % (37.0-47.0); HEMOGLOBIN 12.7 g/dL (12.5-16.0); MEAN CELL VOLUME 96 fl (78-100); MEAN CORPUSCULAR HEMOGLOBIN 30 pg (27-31); MEAN CORPUSCULAR HGB CONC 31 g/dL (33-37); MEAN PLATELET VOLUME 9.5 fl (7.4-10.4); MONO # 0.4 (0.20-0.80); NEU # 3.2 (1.40-6.50); PLATELET COUNT 202 K/mm3 (130-400); RED CELL DISTRIBUTION WIDTH 14.8 % (11.5-14.5); WHITE BLOOD COUNT 4.3 K/mm3 (4.8-10.8)
[2020-09-20 07:34] LABS: ALBUMIN 3.8 g/dL (3.4-4.8); POTASSIUM 4.6 mmol/L (3.5-5.1)
[2020-09-20 07:37] LABS: TOTAL PROTEIN 6.3 g/dL (6.2-8.1)
[2020-09-20 07:39] LABS: TOTAL BILIRUBIN 0.3 mg/dL (0.2-1.2)
[2020-09-20 07:43] LABS: MAGNESIUM 2.26 mg/dL (1.60-2.60)
[2020-09-20 08:07] LABS: LYMPH# 0.7 (1.50-4.00)
[2020-09-24 12:56] LABS: CYTOMEGALOVIRUS DNA PCR Not Detected (()); CYTOMEGALOVIRUS DNA PCR LOG Not Detected (())
== END ==
LOC: LAB 07:01
DX: Z48.298 Encounter for aftercare following other organ transplant (principal); Z94.2 Lung transplant status; Z79.899 Other long term (current) drug therapy

== ENCOUNTER → 2020-10-04 | Outpatient (CLI) | payer MEDICARE, BC ==
[2020-03-04 09:51] VITALS: BP 137/68
[2020-10-04 07:45] LABS: BASO # 0.02 (0.02-0.10); EOS # 0.03 (0.04-0.40); EOS % 0.6 % (1.0-5.0); HEMOGLOBIN 13.5 g/dL (12.5-16.0); LYMPH# 0.76 (1.50-4.00); MEAN CELL VOLUME 95 fl (78-100); MEAN CORPUSCULAR HEMOGLOBIN 31 pg (27-31); MEAN CORPUSCULAR HGB CONC 32 g/dL (33-37); MEAN PLATELET VOLUME 9.4 fl (7.4-10.4); MONO # 0.43 (0.20-0.80); NEU # 3.74 (1.40-6.50); PLATELET COUNT 153 K/mm3 (130-400); RED BLOOD COUNT 4.42 M/mm3 (4.10-5.30); RED CELL DISTRIBUTION WIDTH 14.1 % (11.5-14.5)
[2020-10-04 07:47] LABS: ALBUMIN 3.9 g/dL (3.4-4.8); POTASSIUM 4.5 mmol/L (3.5-5.1)
[2020-10-04 07:48] LABS: CALCIUM 9.1 mg/dL (8.3-10.5)
[2020-10-04 07:50] LABS: TOTAL PROTEIN 6.6 g/dL (6.2-8.1)
[2020-10-04 07:51] LABS: TOTAL BILIRUBIN 0.3 mg/dL (0.2-1.2)
[2020-10-04 07:56] LABS: MAGNESIUM 2.28 mg/dL (1.60-2.60)
== END ==
LOC: LAB 06:58
DX: Z48.298 Encounter for aftercare following other organ transplant (principal); Z94.2 Lung transplant status; Z79.899 Other long term (current) drug therapy

== ENCOUNTER → 2020-10-13 | Outpatient (CLI) | payer MEDICARE, BC ==
[2020-03-04 09:51] VITALS: BP 137/68
[2020-10-13 07:26] LABS: BASO # 0.02 (0.02-0.10); EOS # 0.03 (0.04-0.40); EOS % 0.7 % (1.0-5.0); HEMATOCRIT 40.5 % (37.0-47.0); HEMOGLOBIN 13.2 g/dL (12.5-16.0); LYMPH# 0.76 (1.50-4.00); MEAN CELL VOLUME 93 fl (78-100); MEAN CORPUSCULAR HEMOGLOBIN 30 pg (27-31); MEAN CORPUSCULAR HGB CONC 33 g/dL (33-37); MEAN PLATELET VOLUME 9.2 fl (7.4-10.4); MONO # 0.36 (0.20-0.80); NEU # 3.25 (1.40-6.50); PLATELET COUNT 184 K/mm3 (130-400); RED BLOOD COUNT 4.37 M/mm3 (4.10-5.30); RED CELL DISTRIBUTION WIDTH 13.8 % (11.5-14.5); WHITE BLOOD COUNT 4.5 K/mm3 (4.8-10.8)
[2020-10-13 07:33] LABS: ALBUMIN 3.9 g/dL (3.4-4.8); POTASSIUM 4.6 mmol/L (3.5-5.1)
[2020-10-13 07:34] LABS: CALCIUM 9.2 mg/dL (8.3-10.5)
[2020-10-13 07:36] LABS: TOTAL PROTEIN 6.7 g/dL (6.2-8.1)
[2020-10-13 07:37] LABS: TOTAL BILIRUBIN 0.4 mg/dL (0.2-1.2)
[2020-10-13 07:42] LABS: MAGNESIUM 2.35 mg/dL (1.60-2.60)
== END ==
LOC: LAB 06:58
PROVIDERS: Internal Medicine
DX: Z48.298 Encounter for aftercare following other organ transplant (principal); Z79.899 Other long term (current) drug therapy; Z94.2 Lung transplant status

== ENCOUNTER → 2020-10-20 | Outpatient (CLI) | payer MEDICARE, BC ==
[2020-03-04 09:51] VITALS: BP 137/68
[2020-10-20 07:46] LABS: ALBUMIN 3.9 g/dL (3.4-4.8); BASO # 0.03 (0.02-0.10); EOS # 0.03 (0.04-0.40); EOS % 0.7 % (1.0-5.0); HEMATOCRIT 41.4 % (37.0-47.0); HEMOGLOBIN 13.6 g/dL (12.5-16.0); LYMPH# 0.94 (1.50-4.00); MEAN CELL VOLUME 93 fl (78-100); MEAN CORPUSCULAR HEMOGLOBIN 30 pg (27-31); MEAN CORPUSCULAR HGB CONC 33 g/dL (33-37); MEAN PLATELET VOLUME 9.1 fl (7.4-10.4); MONO # 0.34 (0.20-0.80); NEU # 2.91 (1.40-6.50); PLATELET COUNT 186 K/mm3 (130-400); RED BLOOD COUNT 4.47 M/mm3 (4.10-5.30); RED CELL DISTRIBUTION WIDTH 13.8 % (11.5-14.5); WHITE BLOOD COUNT 4.3 K/mm3 (4.8-10.8)
[2020-10-20 07:47] LABS: POTASSIUM 4.4 mmol/L (3.5-5.1)
[2020-10-20 07:48] LABS: CALCIUM 9.2 mg/dL (8.3-10.5)
[2020-10-20 07:49] LABS: TOTAL PROTEIN 6.6 g/dL (6.2-8.1)
[2020-10-20 07:51] LABS: TOTAL BILIRUBIN 0.4 mg/dL (0.2-1.2)
[2020-10-20 07:57] LABS: MAGNESIUM 2.31 mg/dL (1.60-2.60)
[2020-10-22 12:32] LABS: CYTOMEGALOVIRUS DNA PCR Not Detected (()); CYTOMEGALOVIRUS DNA PCR LOG Not Detected (())
== END ==
LOC: LAB 07:19
DX: Z48.298 Encounter for aftercare following other organ transplant (principal); Z94.2 Lung transplant status; Z79.899 Other long term (current) drug therapy

== ENCOUNTER → 2020-11-01 | Outpatient (CLI) | payer MEDICARE, BC ==
[2020-03-04 09:51] VITALS: BP 137/68
[2020-11-01 07:40] LABS: BASO # 0.02 (0.02-0.10); EOS # 0.03 (0.04-0.40); EOS % 0.7 % (1.0-5.0); HEMATOCRIT 38.2 % (37.0-47.0); HEMOGLOBIN 12.4 g/dL (12.5-16.0); LYMPH# 0.86 (1.50-4.00); MEAN CELL VOLUME 93 fl (78-100); MEAN CORPUSCULAR HEMOGLOBIN 30 pg (27-31); MEAN CORPUSCULAR HGB CONC 33 g/dL (33-37); MEAN PLATELET VOLUME 9.1 fl (7.4-10.4); MONO # 0.36 (0.20-0.80); NEU # 2.99 (1.40-6.50); PLATELET COUNT 174 K/mm3 (130-400); RED CELL DISTRIBUTION WIDTH 13.6 % (11.5-14.5); WHITE BLOOD COUNT 4.3 K/mm3 (4.8-10.8)
[2020-11-01 07:41] LABS: ALBUMIN 3.7 g/dL (3.4-4.8)
[2020-11-01 07:42] LABS: POTASSIUM 4.3 mmol/L (3.5-5.1)
[2020-11-01 07:43] LABS: CALCIUM 8.8 mg/dL (8.3-10.5)
[2020-11-01 07:44] LABS: TOTAL PROTEIN 6.3 g/dL (6.2-8.1)
[2020-11-01 07:46] LABS: TOTAL BILIRUBIN 0.3 mg/dL (0.2-1.2)
[2020-11-01 07:50] LABS: MAGNESIUM 2.13 mg/dL (1.60-2.60)
[2020-11-05 13:48] LABS: CYTOMEGALOVIRUS DNA PCR Not Detected (()); CYTOMEGALOVIRUS DNA PCR LOG Not Detected (())
== END ==
LOC: LAB 07:15
PROVIDERS: Ophthalmology
DX: Z48.298 Encounter for aftercare following other organ transplant (principal); Z94.2 Lung transplant status; Z79.899 Other long term (current) drug therapy

== ENCOUNTER → 2020-11-03 | Day surgery (SDC) | payer MEDICARE, BC ==
[2020-03-04 09:51] VITALS: BP 137/68
== END ==
LOC: MSO 09:31
DX: H25.12 Age-related nuclear cataract, left eye (principal); J84.10 Pulmonary fibrosis, unspecified; Z94.2 Lung transplant status; I10 Essential (primary) hypertension; I48.91 Unspecified atrial fibrillation; E66.9 Obesity, unspecified; G25.81 Restless legs syndrome; I73.00 Raynaud's syndrome without gangrene; Z91.040 Latex allergy status; Z79.51 Long term (current) use of inhaled steroids; Z79.899 Other long term (current) drug therapy
CPT/HCPCS: 00142; J0171; J2250; J2370; V2632

== ENCOUNTER → 2020-11-15 | Outpatient (CLI) | payer MEDICARE, BC ==
[2020-11-15 07:35] LABS: BASO # 0.03 (0.02-0.10); EOS # 0.02 (0.04-0.40); EOS % 0.5 % (1.0-5.0); HEMATOCRIT 41.6 % (37.0-47.0); HEMOGLOBIN 13.5 g/dL (12.5-16.0); LYMPH# 0.92 (1.50-4.00); MEAN CELL VOLUME 93 fl (78-100); MEAN CORPUSCULAR HEMOGLOBIN 30 pg (27-31); MEAN CORPUSCULAR HGB CONC 33 g/dL (33-37); MEAN PLATELET VOLUME 9.4 fl (7.4-10.4); MONO # 0.39 (0.20-0.80); NEU # 2.58 (1.40-6.50); PLATELET COUNT 197 K/mm3 (130-400); RED BLOOD COUNT 4.48 M/mm3 (4.10-5.30); RED CELL DISTRIBUTION WIDTH 13.4 % (11.5-14.5)
[2020-11-15 08:13] LABS: ALBUMIN 3.8 g/dL (3.4-4.8); POTASSIUM 4.6 mmol/L (3.5-5.1)
[2020-11-15 08:15] LABS: CALCIUM 9.1 mg/dL (8.3-10.5)
[2020-11-15 08:16] LABS: TOTAL PROTEIN 5.7 g/dL (6.2-8.1)
[2020-11-15 08:18] LABS: TOTAL BILIRUBIN 0.3 mg/dL (0.2-1.2)
[2020-11-15 08:22] LABS: MAGNESIUM 2.19 mg/dL (1.60-2.60)
== END ==
LOC: LAB 07:07
DX: Z48.298 Encounter for aftercare following other organ transplant (principal); Z94.2 Lung transplant status; Z79.899 Other long term (current) drug therapy

== ENCOUNTER → 2020-11-22 | Outpatient (CLI) | payer MEDICARE, BC ==
[2020-11-22 08:06] LABS: BASO # 0.02 (0.02-0.10); EOS # 0.03 (0.04-0.40); EOS % 0.7 % (1.0-5.0); HEMATOCRIT 40.2 % (37.0-47.0); HEMOGLOBIN 13.1 g/dL (12.5-16.0); LYMPH# 0.79 (1.50-4.00); MEAN CELL VOLUME 93 fl (78-100); MEAN CORPUSCULAR HEMOGLOBIN 30 pg (27-31); MEAN CORPUSCULAR HGB CONC 33 g/dL (33-37); MEAN PLATELET VOLUME 9.4 fl (7.4-10.4); MONO # 0.43 (0.20-0.80); NEU # 2.75 (1.40-6.50); PLATELET COUNT 181 K/mm3 (130-400); RED BLOOD COUNT 4.32 M/mm3 (4.10-5.30); RED CELL DISTRIBUTION WIDTH 13.8 % (11.5-14.5); WHITE BLOOD COUNT 4.1 K/mm3 (4.8-10.8)
[2020-11-22 08:10] LABS: ALBUMIN 3.7 g/dL (3.4-4.8); POTASSIUM 4.4 mmol/L (3.5-5.1)
[2020-11-22 08:11] LABS: CALCIUM 8.7 mg/dL (8.3-10.5)
[2020-11-22 08:13] LABS: TOTAL PROTEIN 6.5 g/dL (6.2-8.1)
[2020-11-22 08:14] LABS: TOTAL BILIRUBIN 0.3 mg/dL (0.2-1.2)
[2020-11-22 08:19] LABS: MAGNESIUM 2.19 mg/dL (1.60-2.60)
[2020-11-26 16:07] LABS: CYTOMEGALOVIRUS DNA PCR Not Detected (()); CYTOMEGALOVIRUS DNA PCR LOG Not Detected (())
== END ==
LOC: LAB 07:19
PROVIDERS: Physician Assistant
DX: Z48.298 Encounter for aftercare following other organ transplant (principal); Z94.2 Lung transplant status; Z79.899 Other long term (current) drug therapy

== ENCOUNTER → 2020-11-30 | Outpatient (CLI) | payer MEDICARE, BC ==
[2020-11-30 07:16] LABS: ALBUMIN 3.9 g/dL (3.4-4.8); POTASSIUM 4.8 mmol/L (3.5-5.1)
[2020-11-30 07:17] LABS: CALCIUM 9.4 mg/dL (8.3-10.5)
[2020-11-30 07:18] LABS: TOTAL PROTEIN 6.8 g/dL (6.2-8.1)
[2020-11-30 07:20] LABS: TOTAL BILIRUBIN 0.4 mg/dL (0.2-1.2)
[2020-11-30 07:25] LABS: MAGNESIUM 2.1 mg/dL (1.60-2.60)
[2020-11-30 07:33] LABS: BASO # 0.02 (0.02-0.10); EOS # 0.03 (0.04-0.40); EOS % 0.6 % (1.0-5.0); HEMATOCRIT 42.1 % (37.0-47.0); HEMOGLOBIN 13.6 g/dL (12.5-16.0); LYMPH# 0.86 (1.50-4.00); MEAN CELL VOLUME 93 fl (78-100); MEAN CORPUSCULAR HEMOGLOBIN 30 pg (27-31); MEAN CORPUSCULAR HGB CONC 32 g/dL (33-37); MEAN PLATELET VOLUME 9.4 fl (7.4-10.4); NEU # 3.27 (1.40-6.50); PLATELET COUNT 196 K/mm3 (130-400); RED BLOOD COUNT 4.53 M/mm3 (4.10-5.30); RED CELL DISTRIBUTION WIDTH 13.7 % (11.5-14.5); WHITE BLOOD COUNT 4.6 K/mm3 (4.8-10.8)
== END ==
LOC: LAB 06:54
PROVIDERS: Physician Assistant
DX: Z48.298 Encounter for aftercare following other organ transplant (principal); Z94.2 Lung transplant status; Z79.899 Other long term (current) drug therapy

== ENCOUNTER → 2020-12-07 | Outpatient (CLI) | payer MEDICARE, BC ==
[2020-12-07 07:37] LABS: BASO # 0.03 (0.02-0.10); EOS # 0.03 (0.04-0.40); EOS % 0.7 % (1.0-5.0); HEMATOCRIT 38.6 % (37.0-47.0); HEMOGLOBIN 12.6 g/dL (12.5-16.0); LYMPH# 0.75 (1.50-4.00); MEAN CELL VOLUME 92 fl (78-100); MEAN CORPUSCULAR HEMOGLOBIN 30 pg (27-31); MEAN CORPUSCULAR HGB CONC 33 g/dL (33-37); MEAN PLATELET VOLUME 9.3 fl (7.4-10.4); MONO # 0.36 (0.20-0.80); NEU # 2.99 (1.40-6.50); PLATELET COUNT 170 K/mm3 (130-400); RED BLOOD COUNT 4.19 M/mm3 (4.10-5.30); RED CELL DISTRIBUTION WIDTH 13.5 % (11.5-14.5); WHITE BLOOD COUNT 4.2 K/mm3 (4.8-10.8)
[2020-12-07 08:18] LABS: POTASSIUM 4.4 mmol/L (3.5-5.1)
[2020-12-07 08:19] LABS: ALBUMIN 3.6 g/dL (3.4-4.8)
[2020-12-07 08:20] LABS: CALCIUM 9.1 mg/dL (8.3-10.5)
[2020-12-07 08:21] LABS: TOTAL PROTEIN 6.4 g/dL (6.2-8.1)
[2020-12-07 08:23] LABS: TOTAL BILIRUBIN 0.3 mg/dL (0.2-1.2)
[2020-12-07 08:28] LABS: MAGNESIUM 2.01 mg/dL (1.60-2.60)
== END ==
LOC: LAB 07:09
PROVIDERS: Internal Medicine
DX: Z48.298 Encounter for aftercare following other organ transplant (principal); E03.9 Hypothyroidism, unspecified; E78.2 Mixed hyperlipidemia; K90.9 Intestinal malabsorption, unspecified; R73.03 Prediabetes; Z79.899 Other long term (current) drug therapy; Z94.2 Lung transplant status

== ENCOUNTER → 2020-12-14 | Outpatient (CLI) | payer MEDICARE, BC ==
[2020-12-14 07:39] LABS: BASO # 0.02 (0.02-0.10); EOS # 0.02 (0.04-0.40); EOS % 0.4 % (1.0-5.0); HEMATOCRIT 40.3 % (37.0-47.0); HEMOGLOBIN 12.9 g/dL (12.5-16.0); LYMPH# 0.77 (1.50-4.00); MEAN CELL VOLUME 94 fl (78-100); MEAN CORPUSCULAR HEMOGLOBIN 30 pg (27-31); MEAN CORPUSCULAR HGB CONC 32 g/dL (33-37); MEAN PLATELET VOLUME 9.5 fl (7.4-10.4); MONO # 0.38 (0.20-0.80); NEU # 4.18 (1.40-6.50); PLATELET COUNT 201 K/mm3 (130-400); RED BLOOD COUNT 4.31 M/mm3 (4.10-5.30); RED CELL DISTRIBUTION WIDTH 13.5 % (11.5-14.5); WHITE BLOOD COUNT 5.4 K/mm3 (4.8-10.8)
[2020-12-14 07:41] LABS: ALBUMIN 3.8 g/dL (3.4-4.8); POTASSIUM 4.8 mmol/L (3.5-5.1)
[2020-12-14 07:42] LABS: CALCIUM 9.4 mg/dL (8.3-10.5)
[2020-12-14 07:43] LABS: TOTAL PROTEIN 6.6 g/dL (6.2-8.1)
[2020-12-14 07:45] LABS: TOTAL BILIRUBIN 0.3 mg/dL (0.2-1.2)
[2020-12-14 07:50] LABS: MAGNESIUM 2.05 mg/dL (1.60-2.60)
[2020-12-17 15:34] LABS: CYTOMEGALOVIRUS DNA PCR Not Detected (()); CYTOMEGALOVIRUS DNA PCR LOG Not Detected (())
== END ==
LOC: LAB 07:05
PROVIDERS: Physician Assistant
DX: Z48.298 Encounter for aftercare following other organ transplant (principal); Z94.2 Lung transplant status; Z79.899 Other long term (current) drug therapy

== ENCOUNTER → 2020-12-24 | Outpatient (CLI) | payer MEDICARE, BC | LOC: RAD 12:45 | DX: Z90.710 Acquired absence of both cervix and uterus (principal); R10.2 Pelvic and perineal pain; Z90.721 Acquired absence of ovaries, unilateral ==

== ENCOUNTER → 2020-12-29 | Outpatient (CLI) | payer MEDICARE, BC | LOC: RAD 07:53 | DX: Z94.2 Lung transplant status (principal) ==

== ENCOUNTER → 2021-01-04 | Outpatient (CLI) | payer MEDICARE, BC ==
[2021-01-04 07:29] LABS: BASO # 0.05 (0.02-0.10); EOS # 0.01 (0.04-0.40); EOS % 0.2 % (1.0-5.0); HEMOGLOBIN 12.3 g/dL (12.5-16.0); LYMPH# 0.76 (1.50-4.00); MEAN CELL VOLUME 94 fl (78-100); MEAN CORPUSCULAR HEMOGLOBIN 30 pg (27-31); MEAN CORPUSCULAR HGB CONC 32 g/dL (33-37); MEAN PLATELET VOLUME 9.7 fl (7.4-10.4); MONO # 0.34 (0.20-0.80); NEU # 3.71 (1.40-6.50); PLATELET COUNT 206 K/mm3 (130-400); RED BLOOD COUNT 4.13 M/mm3 (4.10-5.30); RED CELL DISTRIBUTION WIDTH 14.3 % (11.5-14.5); WHITE BLOOD COUNT 4.9 K/mm3 (4.8-10.8)
[2021-01-04 07:35] LABS: ALBUMIN 3.8 g/dL (3.4-4.8)
[2021-01-04 07:36] LABS: POTASSIUM 4.7 mmol/L (3.5-5.1)
[2021-01-04 07:37] LABS: CALCIUM 9.1 mg/dL (8.3-10.5)
[2021-01-04 07:38] LABS: TOTAL PROTEIN 6.4 g/dL (6.2-8.1)
[2021-01-04 07:40] LABS: TOTAL BILIRUBIN 0.3 mg/dL (0.2-1.2)
[2021-01-04 07:44] LABS: MAGNESIUM 2.17 mg/dL (1.60-2.60)
[2021-01-07 13:04] LABS: CYTOMEGALOVIRUS DNA PCR Not Detected (()); CYTOMEGALOVIRUS DNA PCR LOG Not Detected (())
== END ==
LOC: LAB 06:59
PROVIDERS: Physician Assistant
DX: Z48.298 Encounter for aftercare following other organ transplant (principal); Z94.2 Lung transplant status; Z79.899 Other long term (current) drug therapy

== ENCOUNTER → 2021-01-04 | Outpatient (CLI) | payer MEDICARE, BC | LOC: MAMMO 09:02 | DX: Z12.31 Encounter for screening mammogram for malignant neoplasm of breast (principal); R92.0 Mammographic microcalcification found on diagnostic imaging of breast ==

== ENCOUNTER → 2021-01-11 | Outpatient (CLI) | payer MEDICARE, BC ==
[2021-01-11 07:36] LABS: BASO # 0.05 (0.02-0.10); EOS # 0.02 (0.04-0.40); EOS % 0.4 % (1.0-5.0); HEMOGLOBIN 12.7 g/dL (12.5-16.0); LYMPH# 0.78 (1.50-4.00); MEAN CELL VOLUME 94 fl (78-100); MEAN CORPUSCULAR HEMOGLOBIN 30 pg (27-31); MEAN CORPUSCULAR HGB CONC 32 g/dL (33-37); MEAN PLATELET VOLUME 9.8 fl (7.4-10.4); MONO # 0.33 (0.20-0.80); NEU # 3.59 (1.40-6.50); PLATELET COUNT 188 K/mm3 (130-400); RED BLOOD COUNT 4.27 M/mm3 (4.10-5.30); RED CELL DISTRIBUTION WIDTH 14.3 % (11.5-14.5); WHITE BLOOD COUNT 4.8 K/mm3 (4.8-10.8)
[2021-01-11 07:43] LABS: ALBUMIN 3.7 g/dL (3.4-4.8); POTASSIUM 4.3 mmol/L (3.5-5.1)
[2021-01-11 07:44] LABS: CALCIUM 9.2 mg/dL (8.3-10.5)
[2021-01-11 07:45] LABS: TOTAL PROTEIN 6.7 g/dL (6.2-8.1)
[2021-01-11 07:47] LABS: TOTAL BILIRUBIN 0.3 mg/dL (0.2-1.2)
[2021-01-11 07:51] LABS: MAGNESIUM 2.14 mg/dL (1.60-2.60)
== END ==
LOC: LAB 07:10
PROVIDERS: Internal Medicine
DX: K90.9 Intestinal malabsorption, unspecified (principal); E03.9 Hypothyroidism, unspecified

== ENCOUNTER → 2021-01-17 | Outpatient (CLI) | payer MEDICARE, BC | LOC: MAMMO 06:49 | DX: N64.1 Fat necrosis of breast (principal); R92.1 Mammographic calcification found on diagnostic imaging of breast; Z94.2 Lung transplant status ==

== ENCOUNTER → 2021-01-20 | Outpatient (CLI) | payer MEDICARE, BC ==
[2021-01-20 07:57] LABS: BASO # 0.06 (0.02-0.10); EOS # 0.02 (0.04-0.40); EOS % 0.4 % (1.0-5.0); HEMATOCRIT 38.3 % (37.0-47.0); HEMOGLOBIN 12.1 g/dL (12.5-16.0); LYMPH# 0.77 (1.50-4.00); MEAN CELL VOLUME 93 fl (78-100); MEAN CORPUSCULAR HEMOGLOBIN 29 pg (27-31); MEAN CORPUSCULAR HGB CONC 32 g/dL (33-37); MEAN PLATELET VOLUME 9.4 fl (7.4-10.4); NEU # 3.83 (1.40-6.50); PLATELET COUNT 196 K/mm3 (130-400); RED BLOOD COUNT 4.12 M/mm3 (4.10-5.30); RED CELL DISTRIBUTION WIDTH 14.2 % (11.5-14.5); WHITE BLOOD COUNT 5.1 K/mm3 (4.8-10.8)
[2021-01-20 08:07] LABS: ALBUMIN 3.8 g/dL (3.4-4.8); POTASSIUM 4.2 mmol/L (3.5-5.1)
[2021-01-20 08:09] LABS: CALCIUM 9.7 mg/dL (8.3-10.5)
[2021-01-20 08:10] LABS: TOTAL PROTEIN 6.5 g/dL (6.2-8.1)
[2021-01-20 08:12] LABS: TOTAL BILIRUBIN 0.4 mg/dL (0.2-1.2)
[2021-01-20 08:16] LABS: MAGNESIUM 2.03 mg/dL (1.60-2.60)
== END ==
LOC: LAB 07:29
PROVIDERS: Internal Medicine
DX: Z48.298 Encounter for aftercare following other organ transplant (principal); K90.9 Intestinal malabsorption, unspecified; E03.9 Hypothyroidism, unspecified; Z94.2 Lung transplant status; Z79.899 Other long term (current) drug therapy

== ENCOUNTER → 2021-02-01 | Outpatient (CLI) | payer MEDICARE, BC ==
[2021-02-01 07:38] LABS: BASO # 0.05 (0.02-0.10); EOS # 0.01 (0.04-0.40); EOS % 0.2 % (1.0-5.0); HEMATOCRIT 39.4 % (37.0-47.0); HEMOGLOBIN 12.3 g/dL (12.5-16.0); LYMPH# 0.76 (1.50-4.00); MEAN CELL VOLUME 94 fl (78-100); MEAN CORPUSCULAR HEMOGLOBIN 29 pg (27-31); MEAN CORPUSCULAR HGB CONC 31 g/dL (33-37); MEAN PLATELET VOLUME 9.9 fl (7.4-10.4); MONO # 0.33 (0.20-0.80); NEU # 3.96 (1.40-6.50); PLATELET COUNT 186 K/mm3 (130-400); RED CELL DISTRIBUTION WIDTH 14.3 % (11.5-14.5); WHITE BLOOD COUNT 5.1 K/mm3 (4.8-10.8)
[2021-02-01 07:43] LABS: ALBUMIN 3.7 g/dL (3.4-4.8); POTASSIUM 4.3 mmol/L (3.5-5.1)
[2021-02-01 07:44] LABS: CALCIUM 9.8 mg/dL (8.3-10.5)
[2021-02-01 07:45] LABS: TOTAL PROTEIN 6.5 g/dL (6.2-8.1)
[2021-02-01 07:47] LABS: TOTAL BILIRUBIN 0.3 mg/dL (0.2-1.2)
[2021-02-01 07:52] LABS: MAGNESIUM 1.86 mg/dL (1.60-2.60)
[2021-02-04 17:03] LABS: CYTOMEGALOVIRUS DNA PCR Not Detected (()); CYTOMEGALOVIRUS DNA PCR LOG Not Detected (())
== END ==
LOC: LAB 07:16
PROVIDERS: Physician Assistant
DX: Z48.298 Encounter for aftercare following other organ transplant (principal); Z94.2 Lung transplant status

== ENCOUNTER → 2021-02-22 | Outpatient (CLI) | payer MEDICARE, BC ==
[2021-02-22 07:53] LABS: BASO # 0.07 (0.02-0.10); EOS # 0.01 (0.04-0.40); EOS % 0.2 % (1.0-5.0); HEMATOCRIT 39.4 % (37.0-47.0); HEMOGLOBIN 12.6 g/dL (12.5-16.0); LYMPH# 0.73 (1.50-4.00); MEAN CELL VOLUME 91 fl (78-100); MEAN CORPUSCULAR HEMOGLOBIN 29 pg (27-31); MEAN CORPUSCULAR HGB CONC 32 g/dL (33-37); MEAN PLATELET VOLUME 9.3 fl (7.4-10.4); MONO # 0.34 (0.20-0.80); PLATELET COUNT 205 K/mm3 (130-400); RED BLOOD COUNT 4.32 M/mm3 (4.10-5.30); RED CELL DISTRIBUTION WIDTH 13.8 % (11.5-14.5); WHITE BLOOD COUNT 5.2 K/mm3 (4.8-10.8)
[2021-02-22 08:05] LABS: ALBUMIN 3.8 g/dL (3.4-4.8); POTASSIUM 4.3 mmol/L (3.5-5.1)
[2021-02-22 08:06] LABS: CALCIUM 9.4 mg/dL (8.3-10.5)
[2021-02-22 08:08] LABS: TOTAL PROTEIN 6.5 g/dL (6.2-8.1)
[2021-02-22 08:09] LABS: TOTAL BILIRUBIN 0.3 mg/dL (0.2-1.2)
[2021-02-22 08:14] LABS: MAGNESIUM 1.99 mg/dL (1.60-2.60)
[2021-02-25 13:55] LABS: CYTOMEGALOVIRUS DNA PCR Not Detected (()); CYTOMEGALOVIRUS DNA PCR LOG Not Detected (())
== END ==
LOC: LAB 07:17
PROVIDERS: Internal Medicine
DX: E03.9 Hypothyroidism, unspecified (principal); K90.9 Intestinal malabsorption, unspecified

== ENCOUNTER → 2021-03-08 | Outpatient (CLI) | payer MEDICARE, BC ==
[2021-03-08 07:43] LABS: BASO # 0.12 K/mm3 (0.02-0.10); EOS # 0.03 K/mm3 (0.04-0.40); EOS % 0.5 % (1.0-5.0); HEMATOCRIT 39.7 % (37.0-47.0); HEMOGLOBIN 12.5 g/dL (12.5-16.0); LYMPH# 1.04 K/mm3 (1.50-4.00); MEAN CELL VOLUME 93 fl (78-100); MEAN CORPUSCULAR HEMOGLOBIN 29 pg (27-31); MEAN CORPUSCULAR HGB CONC 32 g/dL (33-37); MEAN PLATELET VOLUME 9.6 fl (7.4-10.4); MONO # 0.34 K/mm3 (0.20-0.80); NEU # 3.99 K/mm3 (1.40-6.50); PLATELET COUNT 190 K/mm3 (130-400); RED BLOOD COUNT 4.26 M/mm3 (4.10-5.30); RED CELL DISTRIBUTION WIDTH 14.2 % (11.5-14.5); WHITE BLOOD COUNT 5.6 K/mm3 (4.8-10.8)
[2021-03-08 07:46] LABS: ALBUMIN 3.7 g/dL (3.4-4.8); POTASSIUM 4.3 mmol/L (3.5-5.1)
[2021-03-08 07:47] LABS: CALCIUM 9.2 mg/dL (8.3-10.5)
[2021-03-08 07:49] LABS: TOTAL PROTEIN 6.2 g/dL (6.2-8.1)
[2021-03-08 07:50] LABS: TOTAL BILIRUBIN 0.3 mg/dL (0.2-1.2)
[2021-03-08 07:55] LABS: MAGNESIUM 1.93 mg/dL (1.60-2.60)
[2021-03-11 15:21] LABS: CYTOMEGALOVIRUS DNA PCR Not Detected (()); CYTOMEGALOVIRUS DNA PCR LOG Not Detected (())
== END ==
LOC: LAB 07:06
PROVIDERS: Physician Assistant
DX: Z48.298 Encounter for aftercare following other organ transplant (principal); Z94.2 Lung transplant status; Z79.899 Other long term (current) drug therapy

== ENCOUNTER → 2021-03-24 | Day surgery (SDC) | payer MEDICARE, BC | LOC: MSO 07:11 | DX: Z12.11 Encounter for screening for malignant neoplasm of colon (principal); D12.0 Benign neoplasm of cecum; D12.3 Benign neoplasm of transverse colon; K57.30 Diverticulosis of large intestine without perforation or abscess without bleeding; K21.9 Gastro-esophageal reflux disease without esophagitis; E03.9 Hypothyroidism, unspecified; G47.33 Obstructive sleep apnea (adult) (pediatric); J84.9 Interstitial pulmonary disease, unspecified; E66.9 Obesity, unspecified; D64.9 Anemia, unspecified; I10 Essential (primary) hypertension; D50.9 Iron deficiency anemia, unspecified; D84.9 Immunodeficiency, unspecified; J47.9 Bronchiectasis, uncomplicated; Z68.35 Body mass index [BMI] 35.0-35.9, adult; Z94.2 Lung transplant status; Z90.89 Acquired absence of other organs; Z90.710 Acquired absence of both cervix and uterus | CPT/HCPCS: 00811; J2704; J7120 ==

== ENCOUNTER → 2021-03-28 | Outpatient (CLI) | payer MEDICARE, BC ==
[2021-03-28 07:48] LABS: BASO # 0.05 K/mm3 (0.02-0.10); EOS # 0.02 K/mm3 (0.04-0.40); EOS % 0.5 % (1.0-5.0); HEMATOCRIT 41.2 % (37.0-47.0); HEMOGLOBIN 13.2 g/dL (12.5-16.0); MEAN CELL VOLUME 92 fl (78-100); MEAN CORPUSCULAR HEMOGLOBIN 30 pg (27-31); MEAN CORPUSCULAR HGB CONC 32 g/dL (33-37); MEAN PLATELET VOLUME 9.5 fl (7.4-10.4); MONO # 0.33 K/mm3 (0.20-0.80); NEU # 3.08 K/mm3 (1.40-6.50); PLATELET COUNT 173 K/mm3 (130-400); RED BLOOD COUNT 4.47 M/mm3 (4.10-5.30); RED CELL DISTRIBUTION WIDTH 14.5 % (11.5-14.5); WHITE BLOOD COUNT 4.3 K/mm3 (4.8-10.8)
[2021-03-28 09:38] LABS: ALBUMIN 3.7 g/dL (3.4-4.8); POTASSIUM 4.2 mmol/L (3.5-5.1)
[2021-03-28 09:41] LABS: TOTAL PROTEIN 6.5 g/dL (6.2-8.1)
[2021-03-28 09:42] LABS: TOTAL BILIRUBIN 0.3 mg/dL (0.2-1.2)
[2021-03-28 09:47] LABS: MAGNESIUM 2.22 mg/dL (1.60-2.60)
[2021-03-28 11:19] LABS: CALCIUM 9.6 mg/dL (8.3-10.5)
[2021-03-29 14:21] LABS: CYTOMEGALOVIRUS DNA PCR Not Detected (()); CYTOMEGALOVIRUS DNA PCR LOG Not Detected (())
== END ==
LOC: LAB 07:20
PROVIDERS: Physician Assistant
DX: Z48.298 Encounter for aftercare following other organ transplant (principal); Z94.2 Lung transplant status; Z79.899 Other long term (current) drug therapy

== ENCOUNTER → 2021-04-05 | Outpatient (CLI) | payer MEDICARE, BC ==
[2021-04-05 07:43] LABS: HEMATOCRIT 39.6 % (37.0-47.0); HEMOGLOBIN 12.7 g/dL (12.5-16.0); MEAN CELL VOLUME 92 fl (78-100); MEAN CORPUSCULAR HEMOGLOBIN 30 pg (27-31); MEAN CORPUSCULAR HGB CONC 32 g/dL (33-37); MEAN PLATELET VOLUME 9.7 fl (7.4-10.4); PLATELET COUNT 199 K/mm3 (130-400); RED BLOOD COUNT 4.29 M/mm3 (4.10-5.30); RED CELL DISTRIBUTION WIDTH 14.6 % (11.5-14.5); WHITE BLOOD COUNT 4.7 K/mm3 (4.8-10.8)
[2021-04-05 08:03] LABS: ALBUMIN 3.8 g/dL (3.4-4.8); POTASSIUM 4.2 mmol/L (3.5-5.1)
[2021-04-05 08:04] LABS: CALCIUM 9.5 mg/dL (8.3-10.5)
[2021-04-05 08:05] LABS: TOTAL PROTEIN 6.5 g/dL (6.2-8.1)
[2021-04-05 08:07] LABS: TOTAL BILIRUBIN 0.3 mg/dL (0.2-1.2)
[2021-04-05 08:12] LABS: MAGNESIUM 1.96 mg/dL (1.60-2.60)
[2021-04-05 08:31] LABS: BAND 1 % (0-10); LYMPHOCYTE 17 % (20-51); MONOCYTE 7 % (3-10); NEUTROPHILS 75 % (42-75)
[2021-04-08 13:22] LABS: CYTOMEGALOVIRUS DNA PCR Not Detected (()); CYTOMEGALOVIRUS DNA PCR LOG Not Detected (())
== END ==
LOC: LAB 07:00
PROVIDERS: Physician Assistant
DX: Z48.298 Encounter for aftercare following other organ transplant (principal); Z94.2 Lung transplant status; Z79.899 Other long term (current) drug therapy

== ENCOUNTER → 2021-04-12 | Outpatient (CLI) | payer MEDICARE, BC ==
[2021-04-12 07:33] LABS: BASO # 0.07 K/mm3 (0.02-0.10); EOS # 0.02 K/mm3 (0.04-0.40); EOS % 0.4 % (1.0-5.0); HEMATOCRIT 41.1 % (37.0-47.0); HEMOGLOBIN 13.1 g/dL (12.5-16.0); LYMPH# 0.92 K/mm3 (1.50-4.00); MEAN CELL VOLUME 92 fl (78-100); MEAN CORPUSCULAR HEMOGLOBIN 29 pg (27-31); MEAN CORPUSCULAR HGB CONC 32 g/dL (33-37); MEAN PLATELET VOLUME 9.7 fl (7.4-10.4); MONO # 0.38 K/mm3 (0.20-0.80); NEU # 3.64 K/mm3 (1.40-6.50); PLATELET COUNT 204 K/mm3 (130-400); RED BLOOD COUNT 4.45 M/mm3 (4.10-5.30); RED CELL DISTRIBUTION WIDTH 14.7 % (11.5-14.5); WHITE BLOOD COUNT 5.1 K/mm3 (4.8-10.8)
[2021-04-12 07:43] LABS: POTASSIUM 4.6 mmol/L (3.5-5.1)
[2021-04-12 07:44] LABS: CALCIUM 9.3 mg/dL (8.3-10.5)
[2021-04-12 07:46] LABS: TOTAL PROTEIN 6.6 g/dL (6.2-8.1)
[2021-04-12 07:47] LABS: TOTAL BILIRUBIN 0.3 mg/dL (0.2-1.2)
[2021-04-12 07:52] LABS: MAGNESIUM 2.26 mg/dL (1.60-2.60)
== END ==
LOC: LAB 07:06
PROVIDERS: Physician Assistant
DX: Z48.298 Encounter for aftercare following other organ transplant (principal); E61.1 Iron deficiency; Z79.899 Other long term (current) drug therapy; Z94.2 Lung transplant status

== ENCOUNTER → 2021-04-19 | Outpatient (CLI) | payer MEDICARE, BC ==
[2021-04-19 07:15] LABS: BASO # 0.06 K/mm3 (0.02-0.10); EOS # 0.01 K/mm3 (0.04-0.40); EOS % 0.2 % (1.0-5.0); HEMATOCRIT 41.1 % (37.0-47.0); LYMPH# 0.63 K/mm3 (1.50-4.00); MEAN CELL VOLUME 93 fl (78-100); MEAN CORPUSCULAR HEMOGLOBIN 30 pg (27-31); MEAN CORPUSCULAR HGB CONC 32 g/dL (33-37); MEAN PLATELET VOLUME 9.8 fl (7.4-10.4); MONO # 0.34 K/mm3 (0.20-0.80); NEU # 3.46 K/mm3 (1.40-6.50); PLATELET COUNT 187 K/mm3 (130-400); RED CELL DISTRIBUTION WIDTH 14.9 % (11.5-14.5); WHITE BLOOD COUNT 4.5 K/mm3 (4.8-10.8)
[2021-04-19 07:36] LABS: POTASSIUM 4.2 mmol/L (3.5-5.1)
[2021-04-19 07:37] LABS: CALCIUM 9.2 mg/dL (8.3-10.5)
[2021-04-19 07:38] LABS: TOTAL PROTEIN 6.5 g/dL (6.2-8.1)
[2021-04-19 07:40] LABS: TOTAL BILIRUBIN 0.3 mg/dL (0.2-1.2)
[2021-04-19 07:45] LABS: MAGNESIUM 2.15 mg/dL (1.60-2.60)
== END ==
LOC: LAB 06:39
PROVIDERS: Physician Assistant
DX: Z48.298 Encounter for aftercare following other organ transplant (principal); Z94.2 Lung transplant status; Z79.899 Other long term (current) drug therapy

== ENCOUNTER → 2021-04-26 | Outpatient (CLI) | payer MEDICARE, BC ==
[2021-04-26 08:29] LABS: BASO # 0.05 K/mm3 (0.02-0.10); EOS # 0.01 K/mm3 (0.04-0.40); EOS % 0.3 % (1.0-5.0); HEMATOCRIT 41.2 % (37.0-47.0); LYMPH# 0.94 K/mm3 (1.50-4.00); MEAN CELL VOLUME 101 fl (78-100); MEAN CORPUSCULAR HEMOGLOBIN 29 pg (27-31); MEAN CORPUSCULAR HGB CONC 29 g/dL (33-37); MEAN PLATELET VOLUME 9.9 fl (7.4-10.4); NEU # 2.44 K/mm3 (1.40-6.50); PLATELET COUNT 227 K/mm3 (130-400); RED BLOOD COUNT 4.08 M/mm3 (4.10-5.30); RED CELL DISTRIBUTION WIDTH 15.1 % (11.5-14.5); WHITE BLOOD COUNT 3.8 K/mm3 (4.8-10.8)
[2021-04-26 08:47] LABS: ALBUMIN 3.9 g/dL (3.4-4.8); POTASSIUM 4.5 mmol/L (3.5-5.1)
[2021-04-26 08:49] LABS: CALCIUM 9.3 mg/dL (8.3-10.5)
[2021-04-26 08:50] LABS: TOTAL PROTEIN 7.1 g/dL (6.2-8.1)
[2021-04-26 08:52] LABS: TOTAL BILIRUBIN 0.3 mg/dL (0.2-1.2)
[2021-04-26 08:57] LABS: MAGNESIUM 2.03 mg/dL (1.60-2.60)
== END ==
LOC: LAB 07:14 → RAD 07:14
PROVIDERS: Physician Assistant
DX: Z48.298 Encounter for aftercare following other organ transplant (principal); Z79.899 Other long term (current) drug therapy; R09.89 Other specified symptoms and signs involving the circulatory and respiratory systems; Z94.2 Lung transplant status

== ENCOUNTER 2021-05-06 09:03 | Outpatient (RCR) | payer MEDICARE, BC ==
[2021-03-03 14:31] VITALS: BP 127/68
[2021-03-03 15:09] VITALS: BP 129/62
[2021-03-04 14:43] VITALS: BP 141/74
[2021-03-05 14:12] VITALS: BP 137/67
[2021-03-06 14:08] VITALS: BP 120/68
[2021-03-07 14:26] VITALS: BP 132/88
[2021-03-07 15:16] VITALS: BP 121/67
[~2021-05-06] VITALS: Ht 170.2 cm; Wt 87.0 kg
[2021-05-06 09:49] VITALS: BP 133/75
[2021-05-06 10:15] VITALS: BP 131/75
== END 2021-06-01 | disposition home or self-care (01) ==
LOC: AMSURD
DX: Z79.899 Other long term (current) drug therapy (principal)
CPT/HCPCS: J1756

== ENCOUNTER → 2021-05-10 | Outpatient (CLI) | payer MEDICARE, BC ==
[2021-05-10 07:26] LABS: BASO # 0.06 K/mm3 (0.02-0.10); EOS # 0.02 K/mm3 (0.04-0.40); EOS % 0.4 % (1.0-5.0); HEMATOCRIT 40.7 % (37.0-47.0); HEMOGLOBIN 12.6 g/dL (12.5-16.0); MEAN CELL VOLUME 95 fl (78-100); MEAN CORPUSCULAR HEMOGLOBIN 29 pg (27-31); MEAN CORPUSCULAR HGB CONC 31 g/dL (33-37); MEAN PLATELET VOLUME 9.7 fl (7.4-10.4); MONO # 0.35 K/mm3 (0.20-0.80); NEU # 3.37 K/mm3 (1.40-6.50); PLATELET COUNT 185 K/mm3 (130-400); RED BLOOD COUNT 4.28 M/mm3 (4.10-5.30); RED CELL DISTRIBUTION WIDTH 15.1 % (11.5-14.5); WHITE BLOOD COUNT 4.7 K/mm3 (4.8-10.8)
[2021-05-10 07:27] LABS: ALBUMIN 3.9 g/dL (3.4-4.8); POTASSIUM 4.3 mmol/L (3.5-5.1)
[2021-05-10 07:29] LABS: CALCIUM 9.1 mg/dL (8.3-10.5)
[2021-05-10 07:30] LABS: TOTAL PROTEIN 6.3 g/dL (6.2-8.1)
[2021-05-10 07:32] LABS: TOTAL BILIRUBIN 0.4 mg/dL (0.2-1.2)
[2021-05-10 07:37] LABS: MAGNESIUM 2.11 mg/dL (1.60-2.60)
[2021-05-12 12:40] LABS: BETA GLOBULINS (PEP) 0.9 g/dL (0.7-1.2)
[2021-05-13 14:02] LABS: CYTOMEGALOVIRUS DNA PCR Not Detected (()); CYTOMEGALOVIRUS DNA PCR LOG Not Detected (())
== END ==
LOC: LAB 06:59
PROVIDERS: Internal Medicine
DX: G62.9 Polyneuropathy, unspecified (principal)

== ENCOUNTER → 2021-05-17 | Outpatient (CLI) | payer MEDICARE, BC ==
[2021-05-17 08:06] LABS: ALBUMIN 4.1 g/dL (3.4-4.8); POTASSIUM 4.2 mmol/L (3.5-5.1)
[2021-05-17 08:07] LABS: BASO # 0.05 K/mm3 (0.02-0.10); CALCIUM 9.5 mg/dL (8.3-10.5); EOS # 0.01 K/mm3 (0.04-0.40); EOS % 0.3 % (1.0-5.0); HEMATOCRIT 41.3 % (37.0-47.0); HEMOGLOBIN 13.2 g/dL (12.5-16.0); MEAN CELL VOLUME 93 fl (78-100); MEAN CORPUSCULAR HEMOGLOBIN 30 pg (27-31); MEAN CORPUSCULAR HGB CONC 32 g/dL (33-37); MEAN PLATELET VOLUME 9.7 fl (7.4-10.4); NEU # 2.44 K/mm3 (1.40-6.50); PLATELET COUNT 181 K/mm3 (130-400); RED BLOOD COUNT 4.44 M/mm3 (4.10-5.30); WHITE BLOOD COUNT 3.4 K/mm3 (4.8-10.8)
[2021-05-17 08:08] LABS: TOTAL PROTEIN 6.7 g/dL (6.2-8.1)
[2021-05-17 08:10] LABS: TOTAL BILIRUBIN 0.5 mg/dL (0.2-1.2)
[2021-05-17 08:15] LABS: MAGNESIUM 2.23 mg/dL (1.60-2.60)
== END ==
LOC: LAB 07:32
PROVIDERS: Physician Assistant
DX: Z48.298 Encounter for aftercare following other organ transplant (principal); Z79.899 Other long term (current) drug therapy; Z94.2 Lung transplant status

== ENCOUNTER → 2021-05-24 | Outpatient (CLI) | payer MEDICARE, BC ==
[2021-05-24 07:31] LABS: BASO # 0.06 K/mm3 (0.02-0.10); EOS # 0.02 K/mm3 (0.04-0.40); EOS % 0.5 % (1.0-5.0); HEMATOCRIT 38.8 % (37.0-47.0); HEMOGLOBIN 12.4 g/dL (12.5-16.0); LYMPH# 0.64 K/mm3 (1.50-4.00); MEAN CELL VOLUME 93 fl (78-100); MEAN CORPUSCULAR HEMOGLOBIN 30 pg (27-31); MEAN CORPUSCULAR HGB CONC 32 g/dL (33-37); MEAN PLATELET VOLUME 10.1 fl (7.4-10.4); MONO # 0.27 K/mm3 (0.20-0.80); NEU # 2.89 K/mm3 (1.40-6.50); PLATELET COUNT 154 K/mm3 (130-400); RED BLOOD COUNT 4.17 M/mm3 (4.10-5.30); WHITE BLOOD COUNT 3.9 K/mm3 (4.8-10.8)
[2021-05-24 07:35] LABS: ALBUMIN 3.7 g/dL (3.4-4.8); POTASSIUM 4.4 mmol/L (3.5-5.1)
[2021-05-24 07:38] LABS: TOTAL PROTEIN 6.2 g/dL (6.2-8.1)
[2021-05-24 07:39] LABS: TOTAL BILIRUBIN 0.3 mg/dL (0.2-1.2)
[2021-05-24 07:44] LABS: MAGNESIUM 2.07 mg/dL (1.60-2.60)
== END ==
LOC: LAB 07:04
PROVIDERS: Physician Assistant
DX: Z48.298 Encounter for aftercare following other organ transplant (principal); Z79.899 Other long term (current) drug therapy; Z94.2 Lung transplant status

== ENCOUNTER → 2021-06-11 | Outpatient (CLI) | payer MEDICARE, BC | LOC: LAB 10:16 | DX: Z20.822 Contact with and (suspected) exposure to COVID-19 (principal); Z94.2 Lung transplant status ==

== ENCOUNTER → 2021-06-27 | Outpatient (CLI) | payer MEDICARE, BC ==
[2021-06-27 09:13] LABS: BASO # 0.02 K/mm3 (0.02-0.10); EOS # 0.01 K/mm3 (0.04-0.40); EOS % 0.3 % (1.0-5.0); HEMATOCRIT 40.3 % (37.0-47.0); HEMOGLOBIN 12.9 g/dL (12.5-16.0); LYMPH# 0.63 K/mm3 (1.50-4.00); MEAN CELL VOLUME 94 fl (78-100); MEAN CORPUSCULAR HEMOGLOBIN 30 pg (27-31); MEAN CORPUSCULAR HGB CONC 32 g/dL (33-37); MEAN PLATELET VOLUME 9.9 fl (7.4-10.4); MONO # 0.38 K/mm3 (0.20-0.80); NEU # 2.13 K/mm3 (1.40-6.50); PLATELET COUNT 192 K/mm3 (130-400); RED BLOOD COUNT 4.29 M/mm3 (4.10-5.30); RED CELL DISTRIBUTION WIDTH 14.3 % (11.5-14.5); WHITE BLOOD COUNT 3.2 K/mm3 (4.8-10.8)
[2021-06-27 09:22] LABS: ALBUMIN 3.9 g/dL (3.4-4.8); POTASSIUM 4.3 mmol/L (3.5-5.1)
[2021-06-27 09:23] LABS: CALCIUM 9.2 mg/dL (8.3-10.5)
[2021-06-27 09:25] LABS: TOTAL PROTEIN 6.6 g/dL (6.2-8.1)
[2021-06-27 09:26] LABS: TOTAL BILIRUBIN 0.4 mg/dL (0.2-1.2)
[2021-06-27 09:31] LABS: MAGNESIUM 2.2 mg/dL (1.60-2.60)
== END ==
LOC: LAB 07:00
PROVIDERS: Physician Assistant
DX: K90.9 Intestinal malabsorption, unspecified (principal); Z94.2 Lung transplant status; E61.1 Iron deficiency; Z79.899 Other long term (current) drug therapy; Z48.298 Encounter for aftercare following other organ transplant

== ENCOUNTER → 2021-06-29 | Outpatient (CLI) | payer MEDICARE, BC | LOC: LAB 10:06 | DX: N39.0 Urinary tract infection, site not specified (principal); Z94.2 Lung transplant status ==

== ENCOUNTER → 2021-07-01 | Outpatient (CLI) | payer MEDICARE, BC | LOC: LAB 07:16 | DX: Z20.822 Contact with and (suspected) exposure to COVID-19 (principal) ==

== ENCOUNTER → 2021-07-07 | Outpatient (CLI) | payer MEDICARE, BC ==
[~2021-07-07] VITALS: Ht 170.2 cm; Wt 87.0 kg
[2021-07-07 10:35] VITALS: BP 129/69
[2021-07-07 10:50] VITALS: BP 129/67
== END ==
LOC: AMSURD 10:06
DX: E61.1 Iron deficiency (principal)
CPT/HCPCS: J1756

== ENCOUNTER → 2021-07-11 | Outpatient (CLI) | payer MEDICARE, BC ==
[2021-07-11 09:07] LABS: BASO # 0.03 K/mm3 (0.02-0.10); EOS # 0.02 K/mm3 (0.04-0.40); EOS % 0.6 % (1.0-5.0); HEMATOCRIT 42.6 % (37.0-47.0); HEMOGLOBIN 13.7 g/dL (12.5-16.0); LYMPH# 0.69 K/mm3 (1.50-4.00); MEAN CELL VOLUME 95 fl (78-100); MEAN CORPUSCULAR HEMOGLOBIN 31 pg (27-31); MEAN CORPUSCULAR HGB CONC 32 g/dL (33-37); MEAN PLATELET VOLUME 9.6 fl (7.4-10.4); MONO # 0.41 K/mm3 (0.20-0.80); NEU # 2.18 K/mm3 (1.40-6.50); PLATELET COUNT 203 K/mm3 (130-400); RED BLOOD COUNT 4.49 M/mm3 (4.10-5.30); RED CELL DISTRIBUTION WIDTH 13.9 % (11.5-14.5); WHITE BLOOD COUNT 3.4 K/mm3 (4.8-10.8)
[2021-07-11 09:36] LABS: POTASSIUM 4.4 mmol/L (3.5-5.1)
[2021-07-11 09:37] LABS: CALCIUM 9.6 mg/dL (8.3-10.5)
[2021-07-11 09:39] LABS: TOTAL PROTEIN 6.9 g/dL (6.2-8.1)
[2021-07-11 09:40] LABS: TOTAL BILIRUBIN 0.4 mg/dL (0.2-1.2)
[2021-07-11 09:45] LABS: MAGNESIUM 2.23 mg/dL (1.60-2.60)
== END ==
LOC: LAB 07:10
PROVIDERS: Internal Medicine
DX: E03.9 Hypothyroidism, unspecified (principal); K90.9 Intestinal malabsorption, unspecified; Z79.899 Other long term (current) drug therapy; Z94.2 Lung transplant status

== ENCOUNTER → 2021-07-22 | Outpatient (CLI) | payer MEDICARE, BC | LOC: LAB 11:20 | DX: Z94.2 Lung transplant status (principal) ==

== ENCOUNTER → 2021-08-11 | Outpatient (CLI) | payer MEDICARE, BC ==
[2021-08-11 08:01] LABS: BASO # 0.05 K/mm3 (0.02-0.10); EOS # 0.02 K/mm3 (0.04-0.40); EOS % 0.7 % (1.0-5.0); HEMATOCRIT 42.5 % (37.0-47.0); HEMOGLOBIN 13.7 g/dL (12.5-16.0); LYMPH# 0.64 K/mm3 (1.50-4.00); MEAN CELL VOLUME 95 fl (78-100); MEAN CORPUSCULAR HEMOGLOBIN 31 pg (27-31); MEAN CORPUSCULAR HGB CONC 32 g/dL (33-37); MEAN PLATELET VOLUME 9.7 fl (7.4-10.4); MONO # 0.36 K/mm3 (0.20-0.80); NEU # 1.96 K/mm3 (1.40-6.50); PLATELET COUNT 165 K/mm3 (130-400); RED BLOOD COUNT 4.48 M/mm3 (4.10-5.30); RED CELL DISTRIBUTION WIDTH 13.7 % (11.5-14.5); WHITE BLOOD COUNT 3.1 K/mm3 (4.8-10.8)
[2021-08-11 08:20] LABS: ALBUMIN 3.9 g/dL (3.4-4.8); POTASSIUM 4.3 mmol/L (3.5-5.1)
[2021-08-11 08:21] LABS: CALCIUM 9.3 mg/dL (8.3-10.5)
[2021-08-11 08:22] LABS: TOTAL PROTEIN 6.5 g/dL (6.2-8.1)
[2021-08-11 08:24] LABS: TOTAL BILIRUBIN 0.4 mg/dL (0.2-1.2)
[2021-08-11 08:29] LABS: MAGNESIUM 2.02 mg/dL (1.60-2.60)
== END ==
LOC: LAB 07:02
PROVIDERS: Physician Assistant
DX: Z48.298 Encounter for aftercare following other organ transplant (principal); Z94.2 Lung transplant status; Z79.899 Other long term (current) drug therapy

== ENCOUNTER → 2021-09-05 | Outpatient (CLI) | payer MEDICARE, BC ==
[~2021-09-05] VITALS: Ht 170.2 cm; Wt 103.2 kg
[2021-09-05 12:58] VITALS: BP 106/71
== END ==
LOC: AMSURD 11:53
DX: E61.1 Iron deficiency (principal)
CPT/HCPCS: J1756

== ENCOUNTER → 2021-09-05 | Outpatient (CLI) | payer MEDICARE, BC ==
[2021-09-05 08:19] LABS: ALBUMIN 3.8 g/dL (3.4-4.8); POTASSIUM 4.2 mmol/L (3.5-5.1)
[2021-09-05 08:20] LABS: CALCIUM 9.1 mg/dL (8.3-10.5)
[2021-09-05 08:22] LABS: TOTAL PROTEIN 6.4 g/dL (6.2-8.1)
[2021-09-05 08:24] LABS: TOTAL BILIRUBIN 0.3 mg/dL (0.2-1.2)
[2021-09-05 08:28] LABS: MAGNESIUM 2.07 mg/dL (1.60-2.60)
[2021-09-05 15:56] LABS: HEMATOCRIT 42.1 % (37.0-47.0); HEMOGLOBIN 13.3 g/dL (12.5-16.0); LYMPH# 0.54 K/mm3 (1.50-4.00); MEAN CELL VOLUME 95 fl (78-100); MEAN CORPUSCULAR HEMOGLOBIN 30 pg (27-31); MEAN CORPUSCULAR HGB CONC 32 g/dL (33-37); MEAN PLATELET VOLUME 9.9 fl (7.4-10.4); MONO # 0.26 K/mm3 (0.20-0.80); NEU # 0.95 K/mm3 (1.40-6.50); PLATELET COUNT 167 K/mm3 (130-400); RED BLOOD COUNT 4.42 M/mm3 (4.10-5.30); RED CELL DISTRIBUTION WIDTH 13.3 % (11.5-14.5)
[2021-09-05 15:59] LABS: WHITE BLOOD COUNT 1.8 K/mm3 (4.8-10.8)
== END ==
LOC: LAB 07:09
PROVIDERS: Physician Assistant
DX: Z48.298 Encounter for aftercare following other organ transplant (principal); Z94.2 Lung transplant status; Z79.899 Other long term (current) drug therapy

== ENCOUNTER → 2021-09-06 | Outpatient (CLI) | payer MEDICARE, BC ==
[2021-09-09 14:13] LABS: CYTOMEGALOVIRUS DNA PCR Not Detected (()); CYTOMEGALOVIRUS DNA PCR LOG Not Detected (())
== END ==
LOC: LAB 09:28
PROVIDERS: Physician Assistant
DX: Z94.2 Lung transplant status (principal)

== ENCOUNTER → 2021-09-12 | Outpatient (CLI) | payer MEDICARE, BC ==
[2021-09-12 07:41] LABS: BASO # 0.03 K/mm3 (0.02-0.10); EOS # 0.04 K/mm3 (0.04-0.40); EOS % 0.2 % (1.0-5.0); HEMOGLOBIN 13.4 g/dL (12.5-16.0); LYMPH# 1.35 K/mm3 (1.50-4.00); MEAN CELL VOLUME 94 fl (78-100); MEAN CORPUSCULAR HEMOGLOBIN 30 pg (27-31); MEAN CORPUSCULAR HGB CONC 32 g/dL (33-37); MEAN PLATELET VOLUME 9.5 fl (7.4-10.4); MONO # 1.26 K/mm3 (0.20-0.80); NEU # 23.39 K/mm3 (1.40-6.50); PLATELET COUNT 209 K/mm3 (130-400); RED BLOOD COUNT 4.48 M/mm3 (4.10-5.30); RED CELL DISTRIBUTION WIDTH 13.5 % (11.5-14.5)
[2021-09-12 09:38] LABS: ALBUMIN 3.8 g/dL (3.4-4.8); POTASSIUM 4.3 mmol/L (3.5-5.1)
[2021-09-12 09:39] LABS: CALCIUM 9.3 mg/dL (8.3-10.5)
[2021-09-12 09:41] LABS: TOTAL PROTEIN 6.4 g/dL (6.2-8.1)
[2021-09-12 09:42] LABS: TOTAL BILIRUBIN 0.4 mg/dL (0.2-1.2)
[2021-09-12 13:13] LABS: WHITE BLOOD COUNT 26.5 K/mm3 (4.8-10.8)
[2021-09-13 13:18] LABS: CYTOMEGALOVIRUS DNA PCR Not Detected (()); CYTOMEGALOVIRUS DNA PCR LOG Not Detected (())
== END ==
LOC: LAB 07:08
PROVIDERS: Physician Assistant
DX: Z48.298 Encounter for aftercare following other organ transplant (principal); Z79.899 Other long term (current) drug therapy; Z94.2 Lung transplant status

== ENCOUNTER → 2021-09-22 | Outpatient (CLI) | payer MEDICARE, BC ==
[2021-09-22 07:46] LABS: BASO # 0.02 K/mm3 (0.02-0.10); EOS # 0.01 K/mm3 (0.04-0.40); EOS % 0.2 % (1.0-5.0); HEMATOCRIT 35.9 % (37.0-47.0); HEMOGLOBIN 11.7 g/dL (12.5-16.0); LYMPH# 0.78 K/mm3 (1.50-4.00); MEAN CELL VOLUME 94 fl (78-100); MEAN CORPUSCULAR HEMOGLOBIN 31 pg (27-31); MEAN CORPUSCULAR HGB CONC 33 g/dL (33-37); MEAN PLATELET VOLUME 10.2 fl (7.4-10.4); MONO # 0.24 K/mm3 (0.20-0.80); NEU # 4.52 K/mm3 (1.40-6.50); PLATELET COUNT 168 K/mm3 (130-400); RED BLOOD COUNT 3.83 M/mm3 (4.10-5.30); RED CELL DISTRIBUTION WIDTH 13.9 % (11.5-14.5); WHITE BLOOD COUNT 5.6 K/mm3 (4.8-10.8)
[2021-09-22 07:47] LABS: ALBUMIN 3.8 g/dL (3.4-4.8); POTASSIUM 4.9 mmol/L (3.5-5.1)
[2021-09-22 07:49] LABS: CALCIUM 9.1 mg/dL (8.3-10.5)
[2021-09-22 07:50] LABS: TOTAL PROTEIN 6.4 g/dL (6.2-8.1)
[2021-09-22 07:52] LABS: TOTAL BILIRUBIN 0.4 mg/dL (0.2-1.2)
[2021-09-27 14:38] LABS: CYTOMEGALOVIRUS DNA PCR Not Detected (()); CYTOMEGALOVIRUS DNA PCR LOG Not Detected (())
== END ==
LOC: LAB 07:04
PROVIDERS: Physician Assistant
DX: Z48.298 Encounter for aftercare following other organ transplant (principal); Z94.2 Lung transplant status; Z79.899 Other long term (current) drug therapy

== ENCOUNTER → 2021-09-29 | Outpatient (CLI) | payer MEDICARE, BC ==
[2021-09-29 08:52] LABS: BASO # 0.02 K/mm3 (0.02-0.10); EOS # 0.02 K/mm3 (0.04-0.40); EOS % 0.3 % (1.0-5.0); HEMATOCRIT 39.9 % (37.0-47.0); HEMOGLOBIN 12.6 g/dL (12.5-16.0); LYMPH# 0.74 K/mm3 (1.50-4.00); MEAN CELL VOLUME 96 fl (78-100); MEAN CORPUSCULAR HEMOGLOBIN 30 pg (27-31); MEAN CORPUSCULAR HGB CONC 32 g/dL (33-37); MEAN PLATELET VOLUME 10.3 fl (7.4-10.4); MONO # 0.41 K/mm3 (0.20-0.80); NEU # 5.02 K/mm3 (1.40-6.50); PLATELET COUNT 245 K/mm3 (130-400); RED BLOOD COUNT 4.14 M/mm3 (4.10-5.30); RED CELL DISTRIBUTION WIDTH 14.3 % (11.5-14.5); WHITE BLOOD COUNT 6.2 K/mm3 (4.8-10.8)
[2021-09-29 08:53] LABS: ALBUMIN 3.9 g/dL (3.4-4.8); POTASSIUM 4.9 mmol/L (3.5-5.1)
[2021-09-29 08:54] LABS: CALCIUM 9.4 mg/dL (8.3-10.5)
[2021-09-29 08:55] LABS: TOTAL PROTEIN 6.4 g/dL (6.2-8.1)
[2021-09-29 08:57] LABS: TOTAL BILIRUBIN 0.3 mg/dL (0.2-1.2)
[2021-09-29 09:02] LABS: MAGNESIUM 2.37 mg/dL (1.60-2.60)
[2021-10-04 14:10] LABS: CYTOMEGALOVIRUS DNA PCR Not Detected (()); CYTOMEGALOVIRUS DNA PCR LOG Not Detected (())
== END ==
LOC: LAB 07:07
PROVIDERS: Physician Assistant
DX: E61.1 Iron deficiency (principal); Z94.2 Lung transplant status

== ENCOUNTER → 2021-10-11 | Outpatient (CLI) | payer MEDICARE, BC | LOC: LAB 07:04 | DX: Z94.2 Lung transplant status (principal) ==

== ENCOUNTER → 2021-10-14 | Outpatient (CLI) | payer MEDICARE, BC ==
[2021-10-14 07:39] LABS: HEMATOCRIT 41.5 % (37.0-47.0); HEMOGLOBIN 13.1 g/dL (12.5-16.0); LYMPH# 0.65 K/mm3 (1.50-4.00); MEAN CELL VOLUME 95 fl (78-100); MEAN CORPUSCULAR HEMOGLOBIN 30 pg (27-31); MEAN CORPUSCULAR HGB CONC 32 g/dL (33-37); MEAN PLATELET VOLUME 9.9 fl (7.4-10.4); MONO # 0.33 K/mm3 (0.20-0.80); NEU # 5.96 K/mm3 (1.40-6.50); PLATELET COUNT 206 K/mm3 (130-400); RED BLOOD COUNT 4.39 M/mm3 (4.10-5.30); RED CELL DISTRIBUTION WIDTH 14.3 % (11.5-14.5)
== END ==
LOC: LAB 07:11
PROVIDERS: Internal Medicine
DX: E61.1 Iron deficiency (principal)

== ENCOUNTER → 2021-10-17 | Outpatient (CLI) | payer MEDICARE, BC ==
[2021-10-17 07:38] LABS: BASO # 0.01 K/mm3 (0.02-0.10); HEMATOCRIT 41.5 % (37.0-47.0); HEMOGLOBIN 13.2 g/dL (12.5-16.0); LYMPH# 0.73 K/mm3 (1.50-4.00); MEAN CELL VOLUME 94 fl (78-100); MEAN CORPUSCULAR HEMOGLOBIN 30 pg (27-31); MEAN CORPUSCULAR HGB CONC 32 g/dL (33-37); MEAN PLATELET VOLUME 10.1 fl (7.4-10.4); MONO # 0.46 K/mm3 (0.20-0.80); NEU # 7.34 K/mm3 (1.40-6.50); PLATELET COUNT 188 K/mm3 (130-400); RED BLOOD COUNT 4.41 M/mm3 (4.10-5.30); RED CELL DISTRIBUTION WIDTH 14.6 % (11.5-14.5); WHITE BLOOD COUNT 8.6 K/mm3 (4.8-10.8)
[2021-10-17 07:52] LABS: ALBUMIN 3.8 g/dL (3.4-4.8); POTASSIUM 4.5 mmol/L (3.5-5.1)
[2021-10-17 07:53] LABS: CALCIUM 9.2 mg/dL (8.3-10.5)
[2021-10-17 07:54] LABS: TOTAL PROTEIN 6.4 g/dL (6.2-8.1)
[2021-10-17 07:56] LABS: TOTAL BILIRUBIN 1.5 mg/dL (0.2-1.2)
[2021-10-17 08:01] LABS: MAGNESIUM 2.32 mg/dL (1.60-2.60)
[2021-10-18 15:19] LABS: CYTOMEGALOVIRUS DNA PCR Not Detected (()); CYTOMEGALOVIRUS DNA PCR LOG Not Detected (())
== END ==
LOC: LAB 06:59
PROVIDERS: Physician Assistant
DX: Z48.298 Encounter for aftercare following other organ transplant (principal); Z79.899 Other long term (current) drug therapy; Z94.2 Lung transplant status

== ENCOUNTER → 2021-10-19 | Outpatient (CLI) | payer MEDICARE, BC ==
[2021-10-19 07:36] LABS: BASO # 0.01 K/mm3 (0.02-0.10); EOS # 0.01 K/mm3 (0.04-0.40); EOS % 0.1 % (1.0-5.0); HEMATOCRIT 37.5 % (37.0-47.0); MEAN CELL VOLUME 95 fl (78-100); MEAN CORPUSCULAR HEMOGLOBIN 31 pg (27-31); MEAN CORPUSCULAR HGB CONC 32 g/dL (33-37); MEAN PLATELET VOLUME 9.9 fl (7.4-10.4); MONO # 0.54 K/mm3 (0.20-0.80); NEU # 7.75 K/mm3 (1.40-6.50); PLATELET COUNT 191 K/mm3 (130-400); RED BLOOD COUNT 3.93 M/mm3 (4.10-5.30); WHITE BLOOD COUNT 9.2 K/mm3 (4.8-10.8)
== END ==
LOC: LAB 07:20
PROVIDERS: Physician Assistant
DX: Z94.2 Lung transplant status (principal)

== ENCOUNTER → 2021-10-31 | Outpatient (CLI) | payer MEDICARE, BC ==
[~2021-10-31] VITALS: Ht 170.2 cm; Wt 103.2 kg
[2021-10-31 12:17] VITALS: BP 115/73
== END ==
LOC: AMSURD 08:46
DX: E61.1 Iron deficiency (principal)
CPT/HCPCS: J1756

== ENCOUNTER → 2021-11-02 | Outpatient (CLI) | payer MEDICARE, BC ==
[2021-11-02 08:18] LABS: POTASSIUM 4.6 mmol/L (3.5-5.1)
[2021-11-02 08:19] LABS: ALBUMIN 3.8 g/dL (3.4-4.8); CALCIUM 9.2 mg/dL (8.3-10.5)
[2021-11-02 08:21] LABS: TOTAL PROTEIN 6.3 g/dL (6.2-8.1)
[2021-11-02 08:22] LABS: TOTAL BILIRUBIN 0.4 mg/dL (0.2-1.2)
[2021-11-02 08:29] LABS: MAGNESIUM 2.33 mg/dL (1.60-2.60)
[2021-11-02 08:37] LABS: BASO # 0.02 K/mm3 (0.02-0.10); EOS # 0.02 K/mm3 (0.04-0.40); EOS % 0.4 % (1.0-5.0); HEMATOCRIT 36.6 % (37.0-47.0); HEMOGLOBIN 11.4 g/dL (12.5-16.0); LYMPH# 0.62 K/mm3 (1.50-4.00); MEAN CELL VOLUME 100 fl (78-100); MEAN CORPUSCULAR HEMOGLOBIN 31 pg (27-31); MEAN CORPUSCULAR HGB CONC 31 g/dL (33-37); NEU # 4.57 K/mm3 (1.40-6.50); PLATELET COUNT 190 K/mm3 (130-400); RED BLOOD COUNT 3.68 M/mm3 (4.10-5.30); RED CELL DISTRIBUTION WIDTH 16.5 % (11.5-14.5); WHITE BLOOD COUNT 5.6 K/mm3 (4.8-10.8)
[2021-11-08 14:12] LABS: CYTOMEGALOVIRUS DNA PCR Not Detected (()); CYTOMEGALOVIRUS DNA PCR LOG Not Detected (())
== END ==
LOC: LAB 07:29
PROVIDERS: Physician Assistant
DX: Z94.2 Lung transplant status (principal)

== ENCOUNTER → 2021-12-05 | Outpatient (CLI) | payer MEDICARE, BC ==
[2021-12-05 13:05] LABS: BASO # 0.01 K/mm3 (0.02-0.10); EOS # 0.02 K/mm3 (0.04-0.40); EOS % 0.3 % (1.0-5.0); HEMATOCRIT 42.6 % (37.0-47.0); HEMOGLOBIN 13.3 g/dL (12.5-16.0); LYMPH# 0.85 K/mm3 (1.50-4.00); MEAN CELL VOLUME 98 fl (78-100); MEAN CORPUSCULAR HEMOGLOBIN 31 pg (27-31); MEAN CORPUSCULAR HGB CONC 31 g/dL (33-37); MEAN PLATELET VOLUME 9.7 fl (7.4-10.4); MONO # 0.45 K/mm3 (0.20-0.80); NEU # 5.23 K/mm3 (1.40-6.50); PLATELET COUNT 192 K/mm3 (130-400); RED BLOOD COUNT 4.36 M/mm3 (4.10-5.30); RED CELL DISTRIBUTION WIDTH 14.5 % (11.5-14.5); WHITE BLOOD COUNT 6.7 K/mm3 (4.8-10.8)
[2021-12-05 13:40] LABS: ALBUMIN 3.8 g/dL (3.4-4.8); POTASSIUM 4.7 mmol/L (3.5-5.1)
[2021-12-05 13:42] LABS: CALCIUM 9.5 mg/dL (8.3-10.5)
[2021-12-05 13:43] LABS: TOTAL PROTEIN 6.5 g/dL (6.2-8.1)
[2021-12-05 13:45] LABS: TOTAL BILIRUBIN 0.3 mg/dL (0.2-1.2)
[2021-12-05 13:49] LABS: MAGNESIUM 1.99 mg/dL (1.60-2.60)
[2021-12-09 13:14] LABS: CYTOMEGALOVIRUS DNA PCR Not Detected (()); CYTOMEGALOVIRUS DNA PCR LOG Not Detected (())
== END ==
LOC: LAB 06:43
PROVIDERS: Physician Assistant
DX: Z94.2 Lung transplant status (principal)

== ENCOUNTER → 2021-12-19 | Outpatient (CLI) | payer MEDICARE, BC ==
[2021-12-19 07:35] LABS: BASO # 0.02 K/mm3 (0.02-0.10); EOS # 0.02 K/mm3 (0.04-0.40); EOS % 0.3 % (1.0-5.0); HEMATOCRIT 41.2 % (37.0-47.0); HEMOGLOBIN 13.4 g/dL (12.5-16.0); LYMPH# 0.98 K/mm3 (1.50-4.00); MEAN CELL VOLUME 96 fl (78-100); MEAN CORPUSCULAR HEMOGLOBIN 31 pg (27-31); MEAN CORPUSCULAR HGB CONC 33 g/dL (33-37); MEAN PLATELET VOLUME 9.6 fl (7.4-10.4); MONO # 0.43 K/mm3 (0.20-0.80); NEU # 4.69 K/mm3 (1.40-6.50); PLATELET COUNT 173 K/mm3 (130-400); RED BLOOD COUNT 4.29 M/mm3 (4.10-5.30); WHITE BLOOD COUNT 6.2 K/mm3 (4.8-10.8)
[2021-12-19 07:40] LABS: ALBUMIN 3.9 g/dL (3.4-4.8); POTASSIUM 4.7 mmol/L (3.5-5.1)
[2021-12-19 07:41] LABS: CALCIUM 9.6 mg/dL (8.3-10.5)
[2021-12-19 07:42] LABS: TOTAL PROTEIN 6.5 g/dL (6.2-8.1)
[2021-12-19 07:44] LABS: TOTAL BILIRUBIN 0.3 mg/dL (0.2-1.2)
[2021-12-19 07:49] LABS: MAGNESIUM 2.36 mg/dL (1.60-2.60)
[2021-12-23 13:50] LABS: CYTOMEGALOVIRUS DNA PCR Not Detected (()); CYTOMEGALOVIRUS DNA PCR LOG Not Detected (())
== END ==
LOC: LAB 06:40
PROVIDERS: Physician Assistant
DX: Z94.2 Lung transplant status (principal)

== ENCOUNTER → 2021-12-29 | Outpatient (CLI) | payer MEDICARE, BC ==
[~2021-12-29] VITALS: Ht 170.2 cm; Wt 103.2 kg
[2021-12-29 12:20] VITALS: BP 139/78
[2021-12-29 12:50] VITALS: BP 124/74
== END ==
LOC: AMSURD 11:53
DX: E61.1 Iron deficiency (principal)
CPT/HCPCS: J1756

== ENCOUNTER → 2022-01-02 | Outpatient (CLI) | payer MEDICARE, BC | LOC: LAB 07:00 | DX: E61.1 Iron deficiency (principal); K90.9 Intestinal malabsorption, unspecified; E03.9 Hypothyroidism, unspecified; R73.03 Prediabetes ==

== ENCOUNTER → 2022-01-23 | Outpatient (CLI) | payer MEDICARE, BC ==
[2022-01-23 07:47] LABS: ALBUMIN 3.8 g/dL (3.4-4.8); POTASSIUM 4.4 mmol/L (3.5-5.1)
[2022-01-23 07:48] LABS: CALCIUM 8.9 mg/dL (8.3-10.5)
[2022-01-23 07:49] LABS: TOTAL PROTEIN 6.3 g/dL (6.2-8.1)
[2022-01-23 07:51] LABS: TOTAL BILIRUBIN 0.3 mg/dL (0.2-1.2)
[2022-01-23 07:56] LABS: MAGNESIUM 2.01 mg/dL (1.60-2.60)
[2022-01-23 08:22] LABS: BASO # 0.01 K/mm3 (0.02-0.10); EOS # 0.02 K/mm3 (0.04-0.40); EOS % 0.5 % (1.0-5.0); HEMATOCRIT 41.8 % (37.0-47.0); HEMOGLOBIN 13.4 g/dL (12.5-16.0); LYMPH# 0.67 K/mm3 (1.50-4.00); MEAN CELL VOLUME 96 fl (78-100); MEAN CORPUSCULAR HEMOGLOBIN 31 pg (27-31); MEAN CORPUSCULAR HGB CONC 32 g/dL (33-37); MEAN PLATELET VOLUME 9.9 fl (7.4-10.4); MONO # 0.46 K/mm3 (0.20-0.80); NEU # 2.61 K/mm3 (1.40-6.50); PLATELET COUNT 178 K/mm3 (130-400); RED BLOOD COUNT 4.37 M/mm3 (4.10-5.30); RED CELL DISTRIBUTION WIDTH 13.3 % (11.5-14.5); WHITE BLOOD COUNT 3.8 K/mm3 (4.8-10.8)
== END ==
LOC: LAB 06:37
PROVIDERS: Physician Assistant
DX: Z94.2 Lung transplant status (principal)

== ENCOUNTER → 2022-02-02 | Outpatient (CLI) | payer MEDICARE, BC | LOC: MAMMO 09:19 | DX: Z12.31 Encounter for screening mammogram for malignant neoplasm of breast (principal); R92.1 Mammographic calcification found on diagnostic imaging of breast ==

== ENCOUNTER → 2022-02-06 | Outpatient (CLI) | payer MEDICARE, BC ==
[2022-02-06 07:23] LABS: BASO # 0.02 K/mm3 (0.02-0.10); EOS # 0.04 K/mm3 (0.04-0.40); EOS % 1.3 % (1.0-5.0); HEMATOCRIT 43.2 % (37.0-47.0); HEMOGLOBIN 13.9 g/dL (12.5-16.0); LYMPH# 0.61 K/mm3 (1.50-4.00); MEAN CELL VOLUME 96 fl (78-100); MEAN CORPUSCULAR HEMOGLOBIN 31 pg (27-31); MEAN CORPUSCULAR HGB CONC 32 g/dL (33-37); MEAN PLATELET VOLUME 10.1 fl (7.4-10.4); MONO # 0.48 K/mm3 (0.20-0.80); NEU # 2.02 K/mm3 (1.40-6.50); PLATELET COUNT 173 K/mm3 (130-400); RED BLOOD COUNT 4.51 M/mm3 (4.10-5.30); WHITE BLOOD COUNT 3.2 K/mm3 (4.8-10.8)
[2022-02-06 07:26] LABS: ALBUMIN 3.8 g/dL (3.4-4.8)
[2022-02-06 07:27] LABS: POTASSIUM 4.4 mmol/L (3.5-5.1)
[2022-02-06 07:29] LABS: TOTAL PROTEIN 6.3 g/dL (6.2-8.1)
[2022-02-06 07:31] LABS: TOTAL BILIRUBIN 0.3 mg/dL (0.2-1.2)
[2022-02-06 07:35] LABS: MAGNESIUM 2.16 mg/dL (1.60-2.60)
[2022-02-07 14:01] LABS: CYTOMEGALOVIRUS DNA PCR Not Detected (()); CYTOMEGALOVIRUS DNA PCR LOG Not Detected (())
== END ==
LOC: LAB 06:48
PROVIDERS: Physician Assistant
DX: Z94.2 Lung transplant status (principal)

== ENCOUNTER → 2022-04-03 | Outpatient (CLI) | payer MEDICARE, BC ==
[2022-04-03 07:21] LABS: HEMOGLOBIN 12.9 g/dL (12.5-16.0); MEAN CELL VOLUME 96 fl (78-100); MEAN CORPUSCULAR HEMOGLOBIN 31 pg (27-31); MEAN CORPUSCULAR HGB CONC 32 g/dL (33-37); MEAN PLATELET VOLUME 9.7 fl (7.4-10.4); PLATELET COUNT 171 K/mm3 (130-400); RED BLOOD COUNT 4.18 M/mm3 (4.10-5.30); RED CELL DISTRIBUTION WIDTH 13.7 % (11.5-14.5); WHITE BLOOD COUNT 2.6 K/mm3 (4.8-10.8)
[2022-04-03 08:00] LABS: ALBUMIN 3.8 g/dL (3.4-4.8); POTASSIUM 4.9 mmol/L (3.5-5.1)
[2022-04-03 08:01] LABS: CALCIUM 9.3 mg/dL (8.3-10.5)
[2022-04-03 08:03] LABS: TOTAL PROTEIN 6.2 g/dL (6.2-8.1)
[2022-04-03 08:04] LABS: TOTAL BILIRUBIN 0.4 mg/dL (0.2-1.2)
[2022-04-03 08:10] LABS: MAGNESIUM 2.11 mg/dL (1.60-2.60)
[2022-04-03 09:08] LABS: BAND 3 % (0-10); LYMPHOCYTE 23 % (20-51); MONOCYTE 8 % (3-10); NEUTROPHILS 64 % (42-75)
[2022-04-03 09:09] LABS: POLYCHROMASIA 1+
[2022-04-04 14:19] LABS: CYTOMEGALOVIRUS DNA PCR Not Detected (()); CYTOMEGALOVIRUS DNA PCR LOG Not Detected (())
[2022-04-04 16:00] LABS: NEU # 1.74 K/mm3 (1.40-6.50)
== END ==
LOC: LAB 06:47
PROVIDERS: Physician Assistant
DX: Z94.2 Lung transplant status (principal)

== ENCOUNTER → 2022-05-10 | Outpatient (CLI) | payer MEDICARE, BC ==
[~2022-05-10] MED LIST changes: +ACYCLOVIR200 M1 PO; +ENVARSUS XR4 MG PO; +FLOVENT HFA12 G1 IH; +FUROSEMIDE20 MG PO; +ITRACONAZOLE PO; +LOPRESSOR 550 MG/TAB PO; +MAGNESIUM400 MG PO; +MOMETASONE FURO17 GM NS; +SYNTHROID0.125 MG PO; +VITAMIN C PUR1000 MG PO
[2022-05-10 07:01] LABS: BASO # 0.02 K/mm3 (0.02-0.10); EOS # 0.02 K/mm3 (0.04-0.40); EOS % 0.5 % (1.0-5.0); HEMATOCRIT 41.6 % (37.0-47.0); HEMOGLOBIN 13.1 g/dL (12.5-16.0); LYMPH# 0.89 K/mm3 (1.50-4.00); MEAN CELL VOLUME 97 fl (78-100); MEAN CORPUSCULAR HEMOGLOBIN 31 pg (27-31); MEAN CORPUSCULAR HGB CONC 32 g/dL (33-37); MEAN PLATELET VOLUME 10.5 fl (7.4-10.4); MONO # 0.43 K/mm3 (0.20-0.80); NEU # 2.82 K/mm3 (1.40-6.50); PLATELET COUNT 149 K/mm3 (130-400); RED CELL DISTRIBUTION WIDTH 13.1 % (11.5-14.5); WHITE BLOOD COUNT 4.2 K/mm3 (4.8-10.8)
[2022-05-10 07:05] LABS: ALBUMIN 3.9 g/dL (3.4-4.8)
[2022-05-10 07:06] LABS: CALCIUM 9.2 mg/dL (8.3-10.5)
[2022-05-10 07:08] LABS: TOTAL PROTEIN 6.3 g/dL (6.2-8.1)
[2022-05-10 07:09] LABS: TOTAL BILIRUBIN 0.3 mg/dL (0.2-1.2)
[2022-05-10 07:14] LABS: MAGNESIUM 2.23 mg/dL (1.60-2.60)
== END ==
LOC: LAB 06:36
PROVIDERS: Physician Assistant
DX: Z12.39 Encounter for other screening for malignant neoplasm of breast (principal); M35.1 Other overlap syndromes; M87.08 Idiopathic aseptic necrosis of bone, other site; G47.33 Obstructive sleep apnea (adult) (pediatric); E03.9 Hypothyroidism, unspecified; E78.2 Mixed hyperlipidemia; K90.9 Intestinal malabsorption, unspecified; Z94.2 Lung transplant status

== ENCOUNTER → 2022-05-31 | Outpatient (CLI) | payer MEDICARE, BC ==
[2022-05-31 08:14] LABS: ALBUMIN 3.8 g/dL (3.4-4.8)
[2022-05-31 08:15] LABS: CALCIUM 9.4 mg/dL (8.3-10.5)
[2022-05-31 08:17] LABS: BASO # 0.02 K/mm3 (0.02-0.10); EOS # 0.02 K/mm3 (0.04-0.40); EOS % 0.4 % (1.0-5.0); HEMATOCRIT 42.3 % (37.0-47.0); HEMOGLOBIN 13.3 g/dL (12.5-16.0); LYMPH# 0.94 K/mm3 (1.50-4.00); MEAN CELL VOLUME 96 fl (78-100); MEAN CORPUSCULAR HEMOGLOBIN 30 pg (27-31); MEAN CORPUSCULAR HGB CONC 31 g/dL (33-37); MONO # 0.38 K/mm3 (0.20-0.80); NEU # 3.57 K/mm3 (1.40-6.50); PLATELET COUNT 199 K/mm3 (130-400); RED BLOOD COUNT 4.39 M/mm3 (4.10-5.30); TOTAL PROTEIN 6.4 g/dL (6.2-8.1); WHITE BLOOD COUNT 4.9 K/mm3 (4.8-10.8)
[2022-05-31 08:18] LABS: TOTAL BILIRUBIN 0.4 mg/dL (0.2-1.2)
[2022-05-31 08:23] LABS: MAGNESIUM 2.41 mg/dL (1.60-2.60)
[2022-06-02 14:14] LABS: CYTOMEGALOVIRUS DNA PCR Not Detected (()); CYTOMEGALOVIRUS DNA PCR LOG Not Detected (())
== END ==
LOC: LAB 07:24
PROVIDERS: Physician Assistant
DX: Z94.2 Lung transplant status (principal)

== ENCOUNTER → 2022-07-05 | Outpatient (CLI) | payer MEDICARE, BC ==
[2022-07-05 07:01] LABS: BASO # 0.02 K/mm3 (0.02-0.10); EOS # 0.02 K/mm3 (0.04-0.40); EOS % 0.3 % (1.0-5.0); HEMATOCRIT 42.6 % (37.0-47.0); HEMOGLOBIN 13.8 g/dL (12.5-16.0); LYMPH# 1.09 K/mm3 (1.50-4.00); MEAN CELL VOLUME 95 fl (78-100); MEAN CORPUSCULAR HEMOGLOBIN 31 pg (27-31); MEAN CORPUSCULAR HGB CONC 32 g/dL (33-37); MEAN PLATELET VOLUME 9.7 fl (7.4-10.4); MONO # 0.44 K/mm3 (0.20-0.80); NEU # 5.26 K/mm3 (1.40-6.50); PLATELET COUNT 168 K/mm3 (130-400); RED BLOOD COUNT 4.48 M/mm3 (4.10-5.30); RED CELL DISTRIBUTION WIDTH 13.5 % (11.5-14.5); WHITE BLOOD COUNT 6.9 K/mm3 (4.8-10.8)
[2022-07-05 07:14] LABS: POTASSIUM 4.9 mmol/L (3.5-5.1)
[2022-07-05 07:15] LABS: CALCIUM 9.4 mg/dL (8.3-10.5)
[2022-07-05 07:17] LABS: TOTAL PROTEIN 6.5 g/dL (6.2-8.1)
[2022-07-05 07:18] LABS: TOTAL BILIRUBIN 0.3 mg/dL (0.2-1.2)
[2022-07-06 13:50] LABS: MAGNESIUM 2.32 mg/dL (1.60-2.60)
== END ==
LOC: LAB 06:37
PROVIDERS: Physician Assistant
DX: Z94.2 Lung transplant status (principal)

== ENCOUNTER → 2022-07-31 | Outpatient (CLI) | payer MEDICARE, BC ==
[2022-07-31 07:10] LABS: BASO # 0.02 K/mm3 (0.02-0.10); EOS # 0.01 K/mm3 (0.04-0.40); EOS % 0.3 % (1.0-5.0); HEMATOCRIT 42.4 % (37.0-47.0); HEMOGLOBIN 13.7 g/dL (12.5-16.0); LYMPH# 0.91 K/mm3 (1.50-4.00); MEAN CELL VOLUME 94 fl (78-100); MEAN CORPUSCULAR HEMOGLOBIN 30 pg (27-31); MEAN CORPUSCULAR HGB CONC 32 g/dL (33-37); MEAN PLATELET VOLUME 9.7 fl (7.4-10.4); MONO # 0.32 K/mm3 (0.20-0.80); NEU # 2.66 K/mm3 (1.40-6.50); PLATELET COUNT 158 K/mm3 (130-400); RED BLOOD COUNT 4.51 M/mm3 (4.10-5.30); RED CELL DISTRIBUTION WIDTH 13.9 % (11.5-14.5); WHITE BLOOD COUNT 3.9 K/mm3 (4.8-10.8)
[2022-07-31 07:17] LABS: POTASSIUM 4.4 mmol/L (3.5-5.1)
[2022-07-31 07:18] LABS: ALBUMIN 3.8 g/dL (3.4-4.8)
[2022-07-31 07:19] LABS: CALCIUM 9.2 mg/dL (8.3-10.5)
[2022-07-31 07:20] LABS: TOTAL PROTEIN 6.3 g/dL (6.2-8.1)
[2022-07-31 07:22] LABS: TOTAL BILIRUBIN 0.3 mg/dL (0.2-1.2)
[2022-07-31 08:15] LABS: ERYTHROCYTE SEDIMENTATION RATE 17 mm/hr (0-30)
== END ==
LOC: LAB 06:47
PROVIDERS: Internal Medicine
DX: Z12.31 Encounter for screening mammogram for malignant neoplasm of breast (principal); M35.1 Other overlap syndromes; Z94.2 Lung transplant status; M87.08 Idiopathic aseptic necrosis of bone, other site; E03.9 Hypothyroidism, unspecified; G47.33 Obstructive sleep apnea (adult) (pediatric); E78.2 Mixed hyperlipidemia; K57.32 Diverticulitis of large intestine without perforation or abscess without bleeding; E61.1 Iron deficiency

== ENCOUNTER → 2022-09-13 | Outpatient (CLI) | payer MEDICARE, BC | LOC: RAD 15:04 → MAMMO 15:15 | DX: Z13.820 Encounter for screening for osteoporosis (principal); D84.9 Immunodeficiency, unspecified; Z94.2 Lung transplant status ==

== ENCOUNTER → 2023-02-02 | Outpatient (CLI) | payer MEDICARE, BC ==
[~2023-02-02] VITALS: Ht 172.7 cm; Wt 104.5 kg
[2023-02-02 08:20] VITALS: BP 136/64
== END ==
LOC: AMSURD 07:58
DX: E61.1 Iron deficiency (principal)
CPT/HCPCS: J1756

== ENCOUNTER → 2023-02-27 | Outpatient (CLI) | payer MEDICARE, BC | LOC: RAD 14:19 | DX: Z94.2 Lung transplant status (principal) ==

== ENCOUNTER → 2023-04-25 | Outpatient (CLI) | payer MEDICARE, BC ==
[2023-05-01 15:12] LABS: CYTOMEGALOVIRUS DNA PCR Negative (Negative)
== END ==
LOC: LAB 16:24
PROVIDERS: Internal Medicine
DX: D84.9 Immunodeficiency, unspecified (principal); Z94.2 Lung transplant status

== ENCOUNTER → 2023-07-06 | Outpatient (CLI) | payer MEDICARE, BC | LOC: LAB 07-05 17:31 | DX: D84.9 Immunodeficiency, unspecified (principal); Z94.2 Lung transplant status ==

== ENCOUNTER → 2023-07-23 | Outpatient (CLI) | payer MEDICARE, BC ==
[2023-07-23 07:28] LABS: BASO # 0.03 K/mm3 (0.02-0.10); EOS # 0.05 K/mm3 (0.04-0.40); EOS % 0.9 % (1.0-5.0); HEMATOCRIT 44.2 % (37.0-47.0); HEMOGLOBIN 14.2 g/dL (12.5-16.0); MEAN CELL VOLUME 97 fl (78-100); MEAN CORPUSCULAR HEMOGLOBIN 31 pg (27-31); MEAN CORPUSCULAR HGB CONC 32 g/dL (33-37); MEAN PLATELET VOLUME 9.8 fl (7.4-10.4); MONO # 0.41 K/mm3 (0.20-0.80); NEU # 3.93 K/mm3 (1.40-6.50); PLATELET COUNT 137 K/mm3 (130-400); RED BLOOD COUNT 4.55 M/mm3 (4.10-5.30); RED CELL DISTRIBUTION WIDTH 13.1 % (11.5-14.5); WHITE BLOOD COUNT 5.4 K/mm3 (4.8-10.8)
[2023-07-23 07:35] LABS: ALBUMIN 3.6 g/dL (3.4-4.8)
[2023-07-23 07:37] LABS: CALCIUM 8.8 mg/dL (8.3-10.5)
[2023-07-23 07:38] LABS: TOTAL PROTEIN 5.9 g/dL (6.2-8.1)
[2023-07-23 07:40] LABS: TOTAL BILIRUBIN 0.4 mg/dL (0.2-1.2)
[2023-07-23 07:44] LABS: MAGNESIUM 1.94 mg/dL (1.60-2.60)
[2023-07-25 15:12] LABS: CYTOMEGALOVIRUS DNA PCR Negative (Negative)
== END ==
LOC: LAB 06:54
PROVIDERS: Internal Medicine
DX: Z94.2 Lung transplant status (principal)

== ENCOUNTER → 2023-08-07 | Outpatient (CLI) | payer MEDICARE ==
[~2023-08-07] VITALS: Ht 172.7 cm; Wt 104.5 kg
[~2023-08-07] MED LIST changes: +Iron Sucrose 200 MG in NS 100 ML Over 15 minutes IV ONE
[2023-08-07 09:50] VITALS: BP 123/55
[2023-08-07 10:10] VITALS: BP 134/43
== END ==
LOC: AMSURD 09:05
DX: E61.1 Iron deficiency (principal)
CPT/HCPCS: J1756

== ENCOUNTER → 2023-09-17 | Outpatient (CLI) | payer MEDICARE, BC ==
[~2023-09-17] MED LIST changes: -Iron Sucrose 200 MG in NS 100 ML Over 15 minutes IV ONE
== END ==
LOC: MAMMO 13:30
DX: M85.80 Other specified disorders of bone density and structure, unspecified site (principal)

== ENCOUNTER → 2023-11-07 | Outpatient (CLI) | payer MEDICARE, BC ==
[~2023-11-07] VITALS: Ht 172.7 cm; Wt 104.5 kg
[~2023-11-07] MED LIST changes: +CRESEMBA186 MG PO; +Iron Sucrose 200 MG in NS 100 ML Over 15 minutes IV ONE; +VALCYTE450 MG PO
--- NOTE | 2023-11-07 09:15 | NUR ---
PT ARRIVED AMBULATORY FOR OP VENOFER INFUSION. #22 INT INSERTED IN LEFT FOREARM ON FIRST ATTEMPT BY CARMEN SOLOMON RN. VSS. VENOFER INFUSING OVER 15 MINUTES.
[2023-11-07 09:23] VITALS: BP 112/62
[2023-11-07 09:50] VITALS: BP 130/68
--- NOTE | 2023-11-07 10:02 | NUR ---
INFUSION COMPLETED. PT NAEEM WELL. DC'D INT. NO R/S AT SITE. WRAPPED WITH COBAN PER PT REQUEST. VSS. PT LEFT FACILITY AMBULATORY. SCHEDULED APPT FOR 3MONTHS.
== END ==
LOC: AMSURD 08:30 → LAB 08:30
DX: E61.1 Iron deficiency (principal); K90.9 Intestinal malabsorption, unspecified
CPT/HCPCS: J1756

== ENCOUNTER → 2023-11-16 | Outpatient (CLI) | payer MEDICARE, BC ==
[~2023-11-16] MED LIST changes: -Iron Sucrose 200 MG in NS 100 ML Over 15 minutes IV ONE
== END ==
LOC: RAD 08:43
DX: R91.8 Other nonspecific abnormal finding of lung field (principal); Z94.2 Lung transplant status

== ENCOUNTER → 2024-01-21 | Outpatient (CLI) | payer MEDICARE, BC ==
[2024-01-21 07:20] LABS: BASO # 0.01 K/mm3 (0.02-0.10); EOS # 0.13 K/mm3 (0.04-0.40); EOS % 3.2 % (1.0-5.0); HEMATOCRIT 39.3 % (37.0-47.0); LYMPH# 0.99 K/mm3 (1.50-4.00); MEAN CELL VOLUME 99 fl (78-100); MEAN CORPUSCULAR HEMOGLOBIN 33 pg (27-31); MEAN CORPUSCULAR HGB CONC 33 g/dL (33-37); MEAN PLATELET VOLUME 10.1 fl (7.4-10.4); MONO # 0.38 K/mm3 (0.20-0.80); NEU # 2.51 K/mm3 (1.40-6.50); PLATELET COUNT 161 K/mm3 (130-400); RED BLOOD COUNT 3.97 M/mm3 (4.10-5.30); RED CELL DISTRIBUTION WIDTH 13.6 % (11.5-14.5)
[2024-01-21 07:33] LABS: ALBUMIN 3.9 g/dL (3.4-4.8)
[2024-01-21 07:34] LABS: CALCIUM 9.2 mg/dL (8.3-10.5)
[2024-01-21 07:36] LABS: TOTAL PROTEIN 5.9 g/dL (6.2-8.1)
[2024-01-21 07:37] LABS: TOTAL BILIRUBIN 0.3 mg/dL (0.2-1.2)
[2024-01-21 07:42] LABS: MAGNESIUM 2.12 mg/dL (1.60-2.60)
[2024-01-24 05:37] LABS: CYTOMEGALOVIRUS DNA PCR Negative (Negative)
== END ==
LOC: LAB 06:43
PROVIDERS: Internal Medicine
DX: D84.9 Immunodeficiency, unspecified (principal); Z94.2 Lung transplant status

== ENCOUNTER → 2024-02-22 | Outpatient (CLI) | payer MEDICARE, BC | LOC: LAB 07:43 | DX: E61.1 Iron deficiency (principal); E78.2 Mixed hyperlipidemia; R73.03 Prediabetes ==

== ENCOUNTER → 2024-02-22 | Outpatient (CLI) | payer MEDICARE, BC | LOC: MAMMO 07:47 | DX: Z12.31 Encounter for screening mammogram for malignant neoplasm of breast (principal) ==

== ENCOUNTER → 2024-03-12 | Outpatient (CLI) | payer MEDICARE, BC ==
[2024-03-12 13:20] LABS: CALCIUM 9.4 mg/dL (8.3-10.5)
[2024-03-12 13:21] LABS: TOTAL PROTEIN 6.3 g/dL (6.2-8.1)
[2024-03-12 13:23] LABS: TOTAL BILIRUBIN 0.2 mg/dL (0.2-1.2)
== END ==
LOC: LAB 06:45
PROVIDERS: Internal Medicine
DX: D84.9 Immunodeficiency, unspecified (principal); Z94.2 Lung transplant status

== ENCOUNTER → 2024-03-31 | Outpatient (CLI) | payer MEDICARE, BC | LOC: LAB 06:57 | DX: D84.9 Immunodeficiency, unspecified (principal); Z94.2 Lung transplant status ==

== ENCOUNTER → 2024-04-21 | Outpatient (CLI) | payer MEDICARE, BC ==
[2024-04-21 07:14] LABS: BASO # 0.02 K/mm3 (0.02-0.10); EOS # 0.14 K/mm3 (0.04-0.40); EOS % 3.1 % (1.0-5.0); HEMATOCRIT 40.7 % (37.0-47.0); HEMOGLOBIN 13.1 g/dL (12.5-16.0); LYMPH# 1.02 K/mm3 (1.50-4.00); MEAN CELL VOLUME 101 fl (78-100); MEAN CORPUSCULAR HEMOGLOBIN 33 pg (27-31); MEAN CORPUSCULAR HGB CONC 32 g/dL (33-37); MEAN PLATELET VOLUME 9.5 fl (7.4-10.4); MONO # 0.43 K/mm3 (0.20-0.80); NEU # 2.84 K/mm3 (1.40-6.50); PLATELET COUNT 172 K/mm3 (130-400); RED BLOOD COUNT 4.03 M/mm3 (4.10-5.30); RED CELL DISTRIBUTION WIDTH 12.5 % (11.5-14.5); WHITE BLOOD COUNT 4.5 K/mm3 (4.8-10.8)
[2024-04-21 07:23] LABS: ALBUMIN 3.9 g/dL (3.4-4.8)
[2024-04-21 07:24] LABS: CALCIUM 9.4 mg/dL (8.3-10.5)
[2024-04-21 07:25] LABS: TOTAL PROTEIN 5.9 g/dL (6.2-8.1)
[2024-04-21 07:27] LABS: TOTAL BILIRUBIN 0.3 mg/dL (0.2-1.2)
[2024-04-21 07:32] LABS: MAGNESIUM 2.1 mg/dL (1.60-2.60)
[2024-04-24 05:39] LABS: CYTOMEGALOVIRUS DNA PCR Negative (Negative)
== END ==
LOC: LAB 06:55
PROVIDERS: Internal Medicine
DX: D84.9 Immunodeficiency, unspecified (principal); Z94.2 Lung transplant status

== ENCOUNTER → 2024-05-12 | Outpatient (CLI) | payer MEDICARE, BC | LOC: LAB 06:51 | DX: D84.9 Immunodeficiency, unspecified (principal); Z94.2 Lung transplant status ==

== ENCOUNTER → 2024-06-04 | Outpatient (CLI) | payer MEDICARE, BC ==
[2024-06-04 07:14] LABS: BASO # 0.03 K/mm3 (0.02-0.10); EOS # 0.15 K/mm3 (0.04-0.40); EOS % 3.3 % (1.0-5.0); HEMATOCRIT 39.2 % (37.0-47.0); HEMOGLOBIN 12.9 g/dL (12.5-16.0); LYMPH# 1.03 K/mm3 (1.50-4.00); MEAN CELL VOLUME 99 fl (78-100); MEAN CORPUSCULAR HEMOGLOBIN 32 pg (27-31); MEAN CORPUSCULAR HGB CONC 33 g/dL (33-37); MEAN PLATELET VOLUME 9.5 fl (7.4-10.4); MONO # 0.42 K/mm3 (0.20-0.80); NEU # 2.92 K/mm3 (1.40-6.50); PLATELET COUNT 197 K/mm3 (130-400); RED BLOOD COUNT 3.98 M/mm3 (4.10-5.30); WHITE BLOOD COUNT 4.6 K/mm3 (4.8-10.8)
[2024-06-04 07:22] LABS: ALBUMIN 3.8 g/dL (3.4-4.8)
[2024-06-04 07:23] LABS: CALCIUM 9.5 mg/dL (8.3-10.5)
[2024-06-04 07:24] LABS: TOTAL PROTEIN 5.8 g/dL (6.2-8.1)
[2024-06-04 07:26] LABS: TOTAL BILIRUBIN 0.3 mg/dL (0.2-1.2)
[2024-06-04 07:31] LABS: MAGNESIUM 2.12 mg/dL (1.60-2.60)
[2024-06-04 17:34] LABS: FOLATE (FOLIC ACID) 15.9 ng/mL (2.0-20.0)
[2024-06-05 14:40] LABS: SIROLIMUS (RAPAMUNE) 6.6 ng/mL (3.0-18.0)
== END ==
LOC: LAB 06:51
PROVIDERS: Internal Medicine
DX: D84.9 Immunodeficiency, unspecified (principal); E03.9 Hypothyroidism, unspecified; D50.9 Iron deficiency anemia, unspecified; K90.9 Intestinal malabsorption, unspecified; E78.2 Mixed hyperlipidemia; M32.9 Systemic lupus erythematosus, unspecified; Z94.2 Lung transplant status

== ENCOUNTER → 2024-06-05 | Outpatient (CLI) | payer MEDICARE, BC | LOC: LAB 12:47 | DX: M35.1 Other overlap syndromes (principal) ==

== ENCOUNTER → 2024-06-11 | Outpatient (CLI) | payer MEDICARE, BC | LOC: LAB 06:42 | DX: D84.9 Immunodeficiency, unspecified (principal); Z94.2 Lung transplant status ==

== ENCOUNTER → 2024-06-23 | Outpatient (CLI) | payer MEDICARE, BC ==
[2024-06-23 07:02] LABS: BASO # 0.03 K/mm3 (0.02-0.10); EOS # 0.22 K/mm3 (0.04-0.40); EOS % 5.5 % (1.0-5.0); HEMATOCRIT 37.8 % (37.0-47.0); HEMOGLOBIN 12.3 g/dL (12.5-16.0); LYMPH# 0.97 K/mm3 (1.50-4.00); MEAN CELL VOLUME 98 fl (78-100); MEAN CORPUSCULAR HEMOGLOBIN 32 pg (27-31); MEAN CORPUSCULAR HGB CONC 33 g/dL (33-37); MEAN PLATELET VOLUME 9.8 fl (7.4-10.4); MONO # 0.44 K/mm3 (0.20-0.80); NEU # 2.34 K/mm3 (1.40-6.50); PLATELET COUNT 162 K/mm3 (130-400); RED BLOOD COUNT 3.86 M/mm3 (4.10-5.30); RED CELL DISTRIBUTION WIDTH 11.7 % (11.5-14.5)
[2024-06-23 07:10] LABS: ALBUMIN 3.7 g/dL (3.4-4.8)
[2024-06-23 07:11] LABS: CALCIUM 8.7 mg/dL (8.3-10.5)
[2024-06-23 07:13] LABS: TOTAL PROTEIN 6.2 g/dL (6.2-8.1)
[2024-06-23 07:14] LABS: PROTHROMBIN TIME 10.2 SECONDS (9.0-12.0); TOTAL BILIRUBIN 0.2 mg/dL (0.2-1.2)
[2024-06-23 07:19] LABS: MAGNESIUM 2.06 mg/dL (1.60-2.60)
[2024-06-25 15:10] LABS: CYTOMEGALOVIRUS DNA PCR Negative (Negative)
== END ==
LOC: LAB 06:44
PROVIDERS: Internal Medicine
DX: Z94.2 Lung transplant status (principal)

== ENCOUNTER → 2024-07-12 | Outpatient (CLI) | payer MEDICARE, BC ==
[2024-07-12 09:53] LABS: BASO # 0.02 K/mm3 (0.02-0.10); EOS % 2.9 % (1.0-5.0); HEMATOCRIT 39.8 % (37.0-47.0); HEMOGLOBIN 12.9 g/dL (12.5-16.0); LYMPH# 0.94 K/mm3 (1.50-4.00); MEAN CELL VOLUME 96 fl (78-100); MEAN CORPUSCULAR HEMOGLOBIN 31 pg (27-31); MEAN CORPUSCULAR HGB CONC 32 g/dL (33-37); MONO # 0.55 K/mm3 (0.20-0.80); NEU # 5.13 K/mm3 (1.40-6.50); PLATELET COUNT 185 K/mm3 (130-400); RED BLOOD COUNT 4.16 M/mm3 (4.10-5.30); RED CELL DISTRIBUTION WIDTH 11.7 % (11.5-14.5); WHITE BLOOD COUNT 6.9 K/mm3 (4.8-10.8)
== END ==
LOC: LAB 09:31
PROVIDERS: Nurse Practitioner Family
DX: R06.00 Dyspnea, unspecified (principal)

== ENCOUNTER → 2024-07-21 | Outpatient (CLI) | payer MEDICARE, BC ==
[2024-07-21 07:20] LABS: BASO # 0.02 K/mm3 (0.02-0.10); EOS # 0.12 K/mm3 (0.04-0.40); EOS % 2.9 % (1.0-5.0); HEMATOCRIT 36.6 % (37.0-47.0); HEMOGLOBIN 12.1 g/dL (12.5-16.0); LYMPH# 0.83 K/mm3 (1.50-4.00); MEAN CELL VOLUME 94 fl (78-100); MEAN CORPUSCULAR HEMOGLOBIN 31 pg (27-31); MEAN CORPUSCULAR HGB CONC 33 g/dL (33-37); MEAN PLATELET VOLUME 9.7 fl (7.4-10.4); MONO # 0.44 K/mm3 (0.20-0.80); NEU # 2.69 K/mm3 (1.40-6.50); PLATELET COUNT 192 K/mm3 (130-400); RED BLOOD COUNT 3.88 M/mm3 (4.10-5.30); RED CELL DISTRIBUTION WIDTH 11.8 % (11.5-14.5); WHITE BLOOD COUNT 4.1 K/mm3 (4.8-10.8)
[2024-07-21 07:27] LABS: ALBUMIN 3.6 g/dL (3.4-4.8)
[2024-07-21 07:29] LABS: CALCIUM 8.8 mg/dL (8.3-10.5)
[2024-07-21 07:30] LABS: TOTAL PROTEIN 6.3 g/dL (6.2-8.1)
[2024-07-21 07:32] LABS: TOTAL BILIRUBIN 0.3 mg/dL (0.2-1.2)
[2024-07-21 07:37] LABS: MAGNESIUM 1.98 mg/dL (1.60-2.60)
[2024-07-21 07:42] LABS: PROTHROMBIN TIME 9.9 SECONDS (9.0-12.0)
[2024-07-23 16:10] LABS: CYTOMEGALOVIRUS DNA PCR Negative (Negative)
== END ==
LOC: LAB 06:52
PROVIDERS: Internal Medicine
DX: E03.9 Hypothyroidism, unspecified (principal); Z94.2 Lung transplant status